=== PATIENT | female | born 1955 | race Caucasian/White ===

== ENCOUNTER 2016-05-04 09:23 | Day surgery (SDC) | payer OTHER ==
--- NOTE | 2016-05-04 06:25 | P.GSHP ---
History of Present Illness H&P Date: 05/04/16 DATE OF SERVICE: 05/04/2016 CHIEF COMPLAINT: Panniculitis and ventral hernia. HISTORY OF PRESENT ILLNESS: Jina Ferrara is a 60-year-old female who is status post sleeve gastrectomy in 2012. She is more than 2+ years out. She reports moderate skin irritation of her pannus including a increased bulge of the lower abdomen consistent with ventral hernia. Her skin is being treated with medicated powders for over 6+ months however her symptoms continue to progress including pain from her ventral hernia. At her height of 5 feet 2 inches she initially weighed 224 pounds. Today she weighs 179 pounds. Her ideal body weight is 135 pounds. She has maintained a 45 pound weight loss. Percent excess weight loss is 51%. Body mass index is reduced from 41 to 31.7. She has been taking bariatric advantage for multivitamins. Today she comes in with persistent troubles of her lower abdomen from her ventral hernia including her panniculitis. PAST MEDICAL HISTORY: 1. Morbid obesity. 2. Diabetes mellitus type 2, resolved. 3. Osteoarthritis. 4. Depression. 5. Insomnia. PAST SURGICAL HISTORY: 1. Upper endoscopy. 2. Status post sleeve gastrectomy. 3. section. 4. Cholecystectomy. 5. Tubal ligation. MEDICATIONS: 1. Effexor. 2. Restoril. 3. Nystatin powder. 4. Ativan. 5. Vitamin D. 6. Calcium. ALLERGIES: CODEINE. SOCIAL HISTORY: No active tobacco use. FAMILY HISTORY: Significant for obesity including diabetes. Has a family history of lung cancer. REVIEW OF SYSTEMS: CONSTITUTIONAL: At her height of 5 feet 2 inches she initially weighed 224 pounds. Today she weighs 179 pounds. Her ideal body weight is 135 pounds. She has maintained a 45 pound weight loss. Percent excess weight loss is 51%. Body mass index is reduced from 41 to 32.7. She has lost approximately 5 pounds since her last visit 2 months ago. GASTROINTESTINAL: Denies any gastroesophageal reflux disease. ENDOCRINE: Complete resolved diabetes type 2. No thyroid disorders. CARDIOVASCULAR: Resolved hypertension. PSYCH: History of depression without suicidal ideation. MUSCULOSKELETAL: No reports of joint or lower back pain. HEMATOLOGIC: No reports of easy bruising and bleeding. SKIN: Persistent panniculitis of the pannus despite treatment with medicated [place]. HEENT: Denies any trouble with vision, hearing or nosebleeds. No difficulty swallowing. LYMPHATIC: The patient denies any lumps and bumps around the neck. RESPIRATORY: Denies pneumonia. Denies any troubles with breathing or dyspnea on exertion. GENITOURINARY: Denies any blood in urine or increased urinary frequency. NEUROLOGIC: Denies any numbness or tingling along the distal extremities. No seizure disorders or headaches. PHYSICAL EXAM: VITAL SIGNS: 98.8, 74, 16, 116/57; 5 foot 2, 179 pounds. Body mass index 31.7 ABDOMEN: Palpable incisional, irreducible ventral hernia lower abdomen. Tender of over 5 cm. Pannus extends over pubis by 6 cm with hyperemia. Weight of pannus of at least 8 pounds. GENERAL: Well-developed female no acute distress. NECK: Supple without lymphadenopathy. CHEST: Unlabored respirations with equal bilateral excursions. CARDIOVASCULAR: Regular rate and rhythm. ABDOMEN: Soft, nontender. MUSCULOSKELETAL: No clubbing, cyanosis, or edema. NEURO: No focal or lateralizing signs. Cranial nerves 2 through 12 grossly within normal limits. PSYCH: Appropriate affect. Alert and oriented to person, place and time. ASSESSMENT: 1. Morbid obesity due to excess calories now resolved. 2. Body mass index reduced from 41 to 31.7, obesity. 3. Status post sleeve gastrectomy. 4. Recurrent panniculitis despite medical treatment. 5. Incisional ventral hernia, 5 cm. 6. Dietary surveillance. 7. History of depression without psychosis. 8. Diabetes type 2, resolved. 9. Depression without psychosis. 10. Secondary hyperparathyroidism. PLAN: 1. On exam, she has increased bulge of the lower abdomen consistent with a ventral hernia. 2. As she is symptomatic, recommend urgent surgical intervention. 3. Additionally, the patient has symptomatic pannus despite medical treatment over 6+ months. 4. Recommend panniculectomy with incisional ventral hernia repair. Benefits and risks including bleeding infection, flap failure, skin ischemia, anemia, need for further surgery were described at length. 5. She has a moderate-sized pannus, recommend inpatient hospitalization for at least 2 nights. 6. DVT prophylaxis. 7. Antibiotic prophylaxis. 8. Recommend high protein, low carb diet for optimal wound recovery. 9. Recommend inpatient hospitalization anticipated for 2 nights. Past Medical History Past Medical History: Cancer, Diabetes Mellitus, Sleep Apnea/CPAP/BIPAP Additional Past Medical History / Comment(s): basal cell skin cancer, diabetes resolved, arthritis, pt stopped using CPAP machine History of Any Multi-Drug Resistant Organisms: None Reported Past Surgical History: Bariatric Surgery, Section, Cholecystectomy, Hysterectomy, Tubal Ligation Additional Past Surgical History / Comment(s): sleeve gastrectomy 10/03/2012,c- sect x2 Past Anesthesia/Blood Transfusion Reactions: No Reported Reaction Additional Past Anesthesia/Blood Transfusion Reaction / Comment(s): no hx blood transfusion Past Psychological History: Anxiety Smoking Status: Former smoker Past Alcohol Use History: Occasional Additional Past Alcohol Use History / Comment(s): quit smoking ,smoked approx 20 yrs 1ppd Past Drug Use History: None Reported - Past Family History Brother(s) Additional Family Medical History / Comment(s): heart problems Mother Family Medical History: Cancer Additional Family Medical History / Comment(s): Mom of lung cancer Father Family Medical History: CVA/TIA, Diabetes Mellitus Medications and Allergies Home Medications Medication Instructions Recorded Confirmed Type LORazepam [Ativan] 0.5 mg PO HS PRN 09/25/13 04/22/16 History Temazepam [Restoril] 30 mg PO HS 09/25/13 04/22/16 History Venlafaxine HCl [Effexor] 150 mg PO QAM 09/25/13 04/22/16 History Cholecalciferol [Vitamin D3] 5,000 unit PO DAILY 04/22/16 04/22/16 History Nystatin 100,000 Unit/gm Powd 1 applic TOPICAL BID PRN 04/22/16 04/22/16 History [Mycostatin Powder] Pseudoephedrine HCl [Sudafed 1 tab PO DAILY PRN 04/22/16 04/22/16 History 24-Hour] Allergies Allergy/AdvReac Type Severity Reaction Status Date / Time No Known Allergies Allergy Verified 04/22/16 11:13
[~2016-05-04 09:23] MED LIST: DEXAMETHASONE SOD PHOSPHATE 10 MG/ML 1 ML VIAL IV ONE; FAMOTIDINE 20 MG/2 ML VIAL IV PRN; HEPARIN SODIUM,PORCINE 5,000 UNIT/ML 1 ML VIAL SQ ONE; LIDOCAINE 1% 20 ML VIAL (10MG/ML) FOR IV START INTRADERMA PRN; MIDAZOLAM 2 MG/2 ML VIAL IV PRN; ONDANSETRON 4 MG/2 ML VIAL IVP PRN
[2016-05-04] MEDS: LACTATED RINGERS 1,000 ML IV SCH ×3 (10:08→21:22)
[2016-05-04] MEDS ORDERED: ePHEDrine 50 MG/ML 1 ML AMP ONE (10:30)
[2016-05-04] MEDS ORDERED: MIDAZOLAM 2 MG/2 ML VIAL ONE (10:30)
[2016-05-04] MEDS ORDERED: SODIUM CHLORIDE 0.9% 100 ML BAG ONE (10:30)
[2016-05-04] MEDS ORDERED: GLYCOPYRROLATE 0.2 MG/ML 2 ML VIAL ONE (10:30)
[2016-05-04] MEDS: ceFAZolin 2 GM in SODIUM CHLORIDE 0.9% 100 ML IVPB ONE ×3 (10:30→15:25)
[2016-05-04] MEDS ORDERED: NEOSTIGMINE 1 MG/ML 10 ML VIAL ONE (10:30)
[2016-05-04] MEDS ORDERED: PROPOFOL 10 MG/ML 20 ML VIAL IV ONE (10:30)
[2016-05-04] MEDS ORDERED: VECURONIUM 10 MG VIAL IV ONE (10:30)
[2016-05-04] MEDS ORDERED: ONDANSETRON 4 MG/2 ML VIAL ONE (10:30)
[2016-05-04] MEDS ORDERED: ceFAZolin 10 GM VIAL IVPB ONE (10:30)
[2016-05-04] MEDS ORDERED: LACTATED RINGERS 1,000 ML BAG IV ONE (10:30)
[2016-05-04] MEDS ORDERED: fentaNYL (PF) 50 MCG/ML 2 ML AMP ONE (10:30)
[2016-05-04] MEDS ORDERED: SUCCINYLCHOLINE CHLORIDE VIAL 200 MG/10 ML VIAL IV ONE (10:30)
[2016-05-04] MEDS: BUPIVACAINE LIPOSOME/PF 1.3% 20 ML, BUPIVACAIN-EPI 0.5%-1:200,000 25 ML, SODIUM CHLORID... MISCELLANE ONE ×6 (11:43→11:59)
[2016-05-04] MEDS ORDERED: LACTATED RINGERS 1,000 ML IV ONE ×3 (12:25→13:40)
[2016-05-04] MEDS ORDERED: NALOXONE 0.4 MG/ML 1 ML VIAL IV PRN (13:43)
[2016-05-04] MEDS ORDERED: METOCLOPRAMIDE 5 MG/ML 2 ML VIAL IVP PRN (13:43)
[2016-05-04] MEDS ORDERED: ONDANSETRON 4 MG/2 ML VIAL IVP PRN (13:43)
--- NOTE | 2016-05-04 13:43 | P.OP ---
Date of Procedure: 05/04/16 Description of Procedure: SURGEON: GIULIANA GARNER MD WOOD [employer]ING MACHINE OPERATOR: ALDA FLORES PREOPERATIVE DIAGNOSES: 1. Morbid obesity due to excess calories now resolved. 2. Body mass index reduced from 41 to 31.7, obesity. 3. Status post sleeve gastrectomy. 4. Recurrent panniculitis despite medical treatment. 5. Incisional ventral hernia, 5 cm. 6. Dietary surveillance. 7. History of depression without psychosis. 8. Diabetes type 2, resolved. 9. Depression without psychosis. 10. Secondary hyperparathyroidism. 11. Incisional ventral hernia. 12. Localized central adiposity. POSTOPERATIVE DIAGNOSES: 1. Morbid obesity due to excess calories now resolved. 2. Body mass index reduced from 41 to 31.7, obesity. 3. Status post sleeve gastrectomy. 4. Recurrent panniculitis despite medical treatment. 5. Incisional ventral hernia, 5 cm. 6. Dietary surveillance. 7. History of depression without psychosis. 8. Diabetes type 2, resolved. 9. Depression without psychosis. 10. Secondary hyperparathyroidism. 11. Ventral hernia, 4 x 17 cm initial and reducible. 12. Localized central adiposity. OPERATION: 1. Panniculectomy, 9.4 pounds. 2. Open reduction and repair of reducible incisional ventral hernia 4 x 17 cm without mesh. ANESTHESIA: General with 85 mL of Exparel with sensorcaine and normal saline mixture. ESTIMATED BLOOD LOSS: 300 mL SPECIMENS REMOVED: Pannus 9.4 pounds. COMPLICATIONS: None. CONDITION: Stable. DRAINS: Two #19 Carl drains below abdominal flap extending through the pubis. OPERATIVE FINDINGS: 1. Pannus weighing 9.4 pounds, excised. 2. Abdominal initial reducible incisional ventral hernia of 4 x 17 cm along the lower midline repaired primarily using fascial imbrication, 9 cm. INDICATIONS: The patient is a 60-year-old female status post sleeve gastrectomy. She had moderate weight loss. Despite medical therapy with prescription powders such as Nystatin over 1 year, she has developed severe medical refractory panniculitis. Her body mass index has been reduced from approximately 41 to 31.7. She reports medically refractory panniculitis. She had an incisional ventral hernia of the lower abdomen and identified. Given her clinical symptoms, including massive weight loss, she elected for surgical intervention with a panniculectomy. Benefits and risks of the procedure including bleeding, infection, risk of flap failure were described at length. Informed consent was obtained. DESCRIPTION: In the preanesthesia care unit the patient was marked with an indelible marker. She had also been given heparin subcutaneously. The patient was brought into the operating room and laid in supine position. After general induction, a Wen catheter was placed. The abdomen was then prepped and draped in standard sterile fashion using ChloraPrep. The skin was prepped as far laterally to the back, inferiorly to the upper thighs and superiorly to above the bilateral breasts. A timeout protocol was confirmed with the surgical team regarding patient's name , procedure to be performed, including preoperative medications. She had received Ancef 2 grams IV antibiotics. Once the time-out protocol was confirmed with the surgical team, the patient was re-marked with indelible marker whereby the midline of the xiphoid to the mons pubis was marked. The anterior/superior iliac spine along the bilateral hips was also marked. Approximately 8 cm above the pubis commissure a transverse incision was made for the inferior portion of the flap. Using a #10 blade, the incision was taken from the midline laterally to above the anterior/superior iliac spine, initially on the left side of the patient and then on the right side of the patient. Electro-Bovie cautery was used to control for hemostasis. The dissection was taken down to the level of the fascia. Landmarks used were the xiphoid process as well as the bilateral costal margins for the superior margin. Care was taken to avoid any creation of dog ears during the dissection. Once hemostasis was checked, a large ventral hernia fascial defect of 4 x 17 cm was identified unrelated to her bariatric procedure. Additionally, along the umbilicus, an incarcerated 3 cm umbilical hernia was identified. During this dissection, the umbilicus was truncated at its fascial insertion. The umbilicus fascial excision was oversewn using 0 Prolene. Starting from the xiphoid process, fascial imbrication was performed using #2 Ethibond. Multiple facial imbrications at least 6 layers were performed. The ventral hernia defect was completely repaired and closed. For postop analgesia, 85 mL of Exparel with sensorcaine and normal saline mixture was infiltrated along the midline and fascia. Hemostasis was once again checked with electro-Bovie cautery and all defects were addressed. Attention was now brought to closure of the flap. Using stainless steel skin sarah, the midline was once again marked of the upper flap as well as the pubic commissure. The patient was placed in a flexed position of approximately 30 degrees at the hips. The pannus was extended inferiorly to the feet. The upper flap was created once the excess skin was excised. Again care was taken to avoid any dog ears along the lateral aspect of the incisions. Once excised, the pannus was weighed at 9.4 pounds. The upper and lower flaps were reapproximated at the midline and then laterally to the skin with skin sarah. Once reapproximated, the skin was closed in layers using 0 Vicryl for the superficial fascial system followed by running 3- 0 Monocryl for the deep dermis in a running subcuticular fashion. Prior to skin closure, two round #19 Carl drains were placed underneath the flap and brought out just inferior to the incision along the pubis. Drain stitch using 2-0 nylon was placed. Once the incision was closed, bulb suction was attached. Hemostasis was checked. At the end of the procedure, the needle, sponge and instrument count was verified correct. Dermabond tape with Dermabond liquid was placed along the entire length of the incision. OptiFlow Aquacel Ag dressing was placed once dried along the incision. CHG Tegaderm was placed over the BARBY insertion sites. The patient was then transferred to a hospital bed in a beach chair position. An abdominal binder was placed and marked. The patient was taken to the postanesthesia care unit in stable condition, awake and extubated. Total time for procedure from skin to skin was 140 minutes. Patient was deemed an ASA2. The intraoperative findings were discussed with her who was pleased with the level of care.
[2016-05-04] MEDS: HYDROmorphone 1 MG/ML 1 ML SYRINGE IVP PRN ×4 (14:14→20:44)
[2016-05-04] MEDS: ceFAZolin 2 GM in SODIUM CHLORIDE 0.9% 100 ML IVPB SCH ×2 (14:53→21:26)
[2016-05-04] MEDS: D5-0.45% NACL WITH KCL 20MEQ/L 1,000 ML IV SCH ×3 (15:24→23:50)
[2016-05-04 16:06] VITALS: BMI 33.5
[2016-05-04 16:56] VITALS: RESP 16
--- NOTE | 2016-05-04 19:27 | P.PN ---
Subjective Principal diagnosis: Ventral hernia with panniculitis Patient is postop day 0 status post panniculectomy ventral hernia repair. She complains of severe postoperative incisional pain. Separately she has symptomatic hypo-magnesia. She also has acute urinary retention following anesthesia. Objective - Vital Signs Vital signs: Vital Signs Temp 97.2 F L 05/04/16 15:30 Pulse 110 H 05/04/16 16:56 Resp 16 05/04/16 15:30 BP 135/71 05/04/16 16:56 Pulse Ox 96 05/04/16 15:30 Intake & Output 05/04/16 05/04/16 05/05/16 06:59 18:59 06:59 Intake Total 2940 Output Total 680 Balance 2260 Weight 83.2 kg Intake: IV 2700 Oral 240 Output: Drainage 20 BARBY Drain 1 20 Urine 230 Estimated Blood Loss 430 - Exam GENERAL: Well developed and in no acute distress. Pleasant. HEENT: No sclera icterus. Extraocular movements grossly intact. Moist buccal mucosa. Head is atraumatic, normocephalic. Hears conversational speech. No nasal drainage. NECK: Supple without lymphadenopathy. No JV distention. CHEST: Non-labored respirations and equal bilateral excursions. CARDIOVASCULAR: Regular rate and rhythm. Palpable 2+ radial pulses. ABDOMEN: Soft, tender. Nondistended. Dressings clean dry and intact. Abdominal binder present. JPs sanguinous. MUSCULOSKELETAL: No clubbing, cyanosis or edema. NEUROLOGIC: No focal or lateralizing signs. PSYCH: Appropriate affect. Alert and oriented to person, place and time. - Labs Labs: Abnormal Lab Results - Last 24 Hours (Table) 05/04/16 Range/Units 14:30 Magnesium 1.5 L (1.6-2.3) mg/dL Assessment and Plan (1) Adiposity, localized Status: Chronic (2) Panniculitis Status: Chronic (3) S/P panniculectomy Status: Acute (4) Acute urinary retention Status: Acute (5) Hypomagnesemia Status: Acute (6) Obesity (BMI 30.0-34.9) Status: Chronic (7) Incisional hernia without mention of obstruction or gangrene Status: Acute (8) History of sleeve gastrectomy Status: Chronic (9) History of incisional hernia repair Status: Acute Plan: 1. Recommend correction of magnesium. 2. Recommend Flomax for acute urinary retention. 3. Reinsertion of Wen catheter with removal in the morning. 4. She has severe postoperative pain for which recommended inpatient hospitalization. 5. BARBY teaching. 6. DVT prophylaxis. 7. Wear abdominal binder at all times.
[2016-05-04] MEDS: MAGNESIUM SULFATE-D5W PMX 1 GM in DEXTROSE/WATER 1 100ML.BAG IVPB SCH ×3 (20:03→23:46)
[2016-05-04] MEDS ORDERED: TAMSULOSIN 0.4 MG CAP.ER.24H PO STA (20:04)
[2016-05-04] MEDS: TAMSULOSIN 0.4 MG CAP.ER.24H PO SCH ×2 (20:07→20:35)
[2016-05-04] MEDS ORDERED: TEMAZEPAM 30 MG CAP PO SCH (21:00)
[2016-05-04] MEDS: HYDROcodone/APAP 5-325MG 1 EACH TAB PO PRN (23:48)
[2016-05-05] MEDS: MAGNESIUM SULFATE-D5W PMX 1 GM in DEXTROSE/WATER 1 100ML.BAG IVPB SCH (00:54)
[2016-05-05] MEDS: HYDROcodone/APAP 5-325MG 1 EACH TAB PO PRN ×2 (06:25→12:01)
[2016-05-05 07:12] VITALS: TEMP 97.8
[2016-05-05] MEDS: TAMSULOSIN 0.4 MG CAP.ER.24H PO SCH (07:13)
[2016-05-05 08:07] LABS: Basophils # (A) 0.1 k/uL (0-0.2); Basophils % (A) 1 %; CH 31.5; CHCM 32.4; Eosinophils % (A) 0 %; HCT 39.4 % (34.0-46.0); HDW 2.48; HGB 12.5 gm/dL (11.4-16.0); Luc # (Auto) 0.12; Luc % (Auto) 1; Lymphocytes # (A) 1.1 k/uL (1.0-4.8); Lymphocytes % (A) 8 %; MCHC 31.8 g/dL (31.0-37.0); MCV 97.7 fL (80.0-100.0); Mean Platelet Volume 8.1; Monocytes # (A) 0.8 k/uL (0-1.0); Monocytes % (A) 6 %; Neutrophils # (A) 11.6 k/uL (1.3-7.7); Neutrophils % (A) 84 %; RBC 4.03 m/uL (3.80-5.40); RDW 13.2 % (11.5-15.5); WBC 13.7 k/uL (3.8-10.6); WBC (Perox) 15.11
--- NOTE | 2016-05-05 08:55 | P.DS ---
<Lillian Rodriguez - Last Filed: 05/05/16 14:38> Providers Attending physician: Ivory Elkins Primary care physician: Gianni Elliott Patient Condition at Discharge: Stable Plan - Discharge Summary New Discharge Prescriptions: HYDROcodone/APAP 7.5-325MG [[place] 7.5-325] 1 tab PO Q4H PRN #60 tab PRN Reason: Pain Discharge Medication List LORazepam [Ativan] 0.5 mg PO HS PRN 09/25/13 [History] Temazepam [Restoril] 30 mg PO HS 09/25/13 [History] Venlafaxine HCl [Effexor] 150 mg PO QAM 09/25/13 [History] Cholecalciferol [Vitamin D3] 5,000 unit PO DAILY 04/22/16 [History] Pseudoephedrine HCl [Sudafed 24-Hour] 1 tab PO DAILY PRN 04/22/16 [History] HYDROcodone/APAP 7.5-325MG [Brightwood 7.5-325] 1 tab PO Q4H PRN #60 tab 05/04/16 [Rx ] Follow up Appointment(s)/Referral(s): Ivory Elkins MD [STAFF PHYSICIAN] - 05/07/16 11:20 am (Bariatric center) Patient Instructions/Handouts: Belt Lipectomy (GEN), Kwame-Conrad Drain Care ( GEN) Activity/Diet/Wound Care/Special Instructions: No lifting over 4 pounds in 4 weeks. Follow-up at the bariatric center. Do not shower until cleared by surgeon. Dressings to be discontinued by surgeon in the office. Please sleep in bed at 45 angle. Keep BARBY outputs. Discharge Disposition: HOME WITH HOME HEALTH SERVICES <Ivory Elkins - Last Filed: 05/05/16 18:20> Providers Date of admission: 05/04/2016 Expected date of discharge: 05/05/16 - Discharge Diagnosis(es) (1) Adiposity, localized Status: Chronic (2) Panniculitis Status: Chronic (3) S/P panniculectomy Status: Acute (4) Acute urinary retention Status: Acute (5) Hypomagnesemia Status: Acute (6) Obesity (BMI 30.0-34.9) Status: Chronic (7) Incisional hernia without mention of obstruction or gangrene Status: Acute (8) History of sleeve gastrectomy Status: Chronic (9) History of incisional hernia repair Status: Acute Hospital Course: POSTOPERATIVE DIAGNOSES: 1. Morbid obesity due to excess calories now resolved. 2. Body mass index reduced from 41 to 31.7, obesity. 3. Status post sleeve gastrectomy. 4. Recurrent panniculitis despite medical treatment. 5. Incisional ventral hernia, 5 cm. 6. Dietary surveillance. 7. History of depression without psychosis. 8. Diabetes type 2, resolved. 9. Depression without psychosis. 10. Secondary hyperparathyroidism. 11. Ventral hernia, 4 x 17 cm initial and reducible. 12. Localized central adiposity. Patient underwent a panniculectomy with repair of ventral hernia. She has severe postoperative pain which required admission. Separately she had acute urinary retention with symptomatic hypo-magnesia. Her electrolytes were corrected. She was started on Flomax. Drain management were discussed. She will wear an abdominal binder at all times. No showering until cleared by surgeon. Prior to discharge, she was tolerating diet. Pain was controlled with oral pain meds. She was ambulating. teaching was reviewed. Procedures: OPERATION: 1. Panniculectomy, 9.4 pounds. 2. Open reduction and repair of reducible incisional ventral hernia 4 x 17 cm without mesh.
[2016-05-05] MEDS ORDERED: PANTOPRAZOLE 40 MG/10 ML VIAL IV SCH (09:00)
[2016-05-05] MEDS ORDERED: VENLAFAXINE HCL 75 MG TAB PO SCH (09:00)
[2016-05-05] MEDS ORDERED: ENOXAPARIN 40 MG/0.4 ML SYRINGE SQ SCH (09:00)
[2016-05-05] MEDS ORDERED: BENZOCAINE/MENTHOL LOZENG 1 EACH LOZENGE MUCOUS MEM PRN (09:50)
[2016-05-05 14:35] VITALS: BP 104/56; PULSE 79
[2016-05-06] MEDS ORDERED: PANTOPRAZOLE 40 MG TABLET PO SCH (07:30)
== END 2016-05-05 16:39 | disposition home health service (06) ==
LOC: OR 09:23 → 3SUR 13:24 → OR 05-05 16:39
PROVIDERS: ATTEND Surgery Plastic and Reconstructive Surgery
DX: K43.9 Ventral hernia without obstruction or gangrene (principal); M79.3 Panniculitis, unspecified; E65 Localized adiposity; E66.01 Morbid (severe) obesity due to excess calories; Z68.31 Body mass index [BMI] 31.0-31.9, adult; Z98.84 Bariatric surgery status; M19.90 Unspecified osteoarthritis, unspecified site; Z87.891 Personal history of nicotine dependence; F32.9 Major depressive disorder, single episode, unspecified; F41.9 Anxiety disorder, unspecified; G47.00 Insomnia, unspecified; N25.81 Secondary hyperparathyroidism of renal origin; Z79.899 Other long term (current) drug therapy; Z88.5 Allergy status to narcotic agent
CPT/HCPCS: 49560; 15830; 94760; 83735 ×2; 85025; J2250; J0330; J1644; J1100; J2710; J0690; J2405; J1650; J3010; J1170; J3475 ×2; C9290; J2704; C9113

== ENCOUNTER → 2016-05-07 | Outpatient (CLI) | payer OTHER ==
--- NOTE | 2016-05-08 08:19 | PN ---
DATE OF SERVICE: 05/07/2016 CHIEF COMPLAINT: Status post panniculectomy. HISTORY OF PRESENT ILLNESS: Jina Ferrara is a 60-year-old female who is status post panniculectomy of 10 pounds skin removed. Separately, she had a large ventral hernia which was also repaired. At a height of 5 feet 2 inches, her ideal body weight is 135 pounds. Today she comes in weighing 180 pounds. She lost 3 pounds in 3 days total. Percent excess weight loss is maintained at 50%. She reports moderate pain. No reports of fevers or chills. PHYSICAL EXAM: VITAL SIGNS: 97.8, 91, 14, 135/74, 5 feet 2 inches, 180 pounds. Body mass index 32.9. GENERAL: Well-developed female in no acute distress. ABDOMEN: Dressings of Optifoam were discontinued. The Dermabond tape was still present. No signs of cellulitis or skin infection. JPs are serosanguineous. Dressings of the CHG Tegaderm was also changed. Abdominal binder was also placed. NECK: Supple without lymphadenopathy. CHEST: Unlabored respirations with equal bilateral excursions. CARDIOVASCULAR: Regular rate and rhythm. ABDOMEN: Soft, nontender. MUSCULOSKELETAL: No clubbing, cyanosis, or edema. NEURO: No focal or lateralizing signs. Cranial nerves 2 through 12 grossly within normal limits. PSYCH: Appropriate affect. Alert and oriented to person, place and time. ASSESSMENT: 1. Morbid obesity due to excess calories now resolved. 2. Body mass index reduced from 41 to 32.9, obesity. 3. Status post sleeve gastrectomy. 4. Recurrent panniculitis despite medical treatment, resolved. 5. Incisional ventral hernia, 5 cm, resolved. 6. Dietary surveillance. 7. History of depression without psychosis. 8. Diabetes type 2, resolved. 9. Depression without psychosis. 10. Secondary hyperparathyroidism. 11. Status post panniculectomy. 12. History of ventral hernia repair. PLAN: 1. She will continue with BARBY drains as her outputs are still anywhere between 50 mL to 100 mL daily. 2. Recommend followup in one week for potential removal of her BARBY drains. 3. Abdominal binder to be worn at all times. [facility]
== END | disposition home or self-care (01) ==
CPT/HCPCS: 99212

== ENCOUNTER → 2016-05-13 | Outpatient (CLI) | payer OTHER ==
--- NOTE | 2016-05-24 19:40 | P.PN ---
Progress Note - Text DATE OF SERVICE: 05/13/2016 CHIEF COMPLAINT: Follow up panniculectomy. HISTORY OF PRESENT ILLNESS: Jina Ferrara is a 60-year-old female who is now status post panniculectomy and ventral hernia repair on 05/04/2016. She is a little over 1 week out. She had close to 10 pounds of skin removed as well as a ventral hernia repair. She denies any fevers or chills. She is ambulating. Much of her help is from her . PHYSICAL EXAM: VITAL SIGNS: 98.8, 72, 16, 127/76, 5 feet 2 inches, 176 pounds. Body mass index 32.3. ABDOMEN: Dressings were discontinued. Moderate maculopapular rash identified from allergy of her binder. No drainage, cellulitis or flap failure identified. BARBY dressings were changed with CHG tegaderm. GENERAL: Well-developed female no acute distress. NECK: Supple without lymphadenopathy. CHEST: Unlabored respirations with equal bilateral excursions. CARDIOVASCULAR: Regular rate and rhythm. ABDOMEN: Soft, nontender. MUSCULOSKELETAL: No clubbing, cyanosis, or edema. NEURO: No focal or lateralizing signs. Cranial nerves 2 through 12 grossly within normal limits. PSYCH: Appropriate affect. Alert and oriented to person, place and time. ASSESSMENT: 1. History of panniculitis. 2. Status post panniculectomy. 3. History of reducible ventral hernia. 4. Status post ventral hernia repair. 5. Status post sleeve gastrectomy. 6. Body mass index reduced from 41 down to 32.3. PLAN: 1. Her BARBY outputs are still well over 20 mL daily; however, serosanguineous. 2. On exam, she has a rash from the binder, whereby I have asked her to wear a T-shirt or a pillowcase away from the skin and the incisions. 3. She will continue with BARBY drain care and management. 4. I recommend that she continue to take Benadryl for her rash. 5. She has a topical prescribed hydrocortisone per her primary care provider. 6. Recommend followup in 1 week.
== END | disposition home or self-care (01) ==
CPT/HCPCS: 99211

== ENCOUNTER → 2016-05-18 | Outpatient (CLI) | payer OTHER ==
--- NOTE | 2016-05-18 20:58 | PN ---
DATE OF SERVICE: 05/18/2016. CHIEF COMPLAINT: Follow-up panniculectomy. HISTORY OF PRESENT ILLNESS: Jina Ferrara is a 60-year-old female who is status post panniculectomy 05/04/2016. She is almost 2 weeks out. She reports minimal output from her BARBY drain. Her abdominal pain is moderately improved, post incisional. She has excellent energy. No reports of fevers or chills. PHYSICAL EXAM: VITAL SIGNS: 98.7, 68, 16, 118/65, 5 foot 2, 79.1, 52 kg body mass is 31.9. ABDOMEN: Incisions well reapproximated. No signs of flap failure, cellulitis. BARBY is serous and discontinued at bedside. CHG Tegaderms were reapplied over the insertion site of BARBY tubes. GENERAL: Well-developed female no acute distress. NECK: Supple without lymphadenopathy. CHEST: Unlabored respirations with equal bilateral excursions. CARDIOVASCULAR: Regular rate and rhythm. ABDOMEN: Soft, nontender. MUSCULOSKELETAL: No clubbing, cyanosis, or edema. NEURO: No focal or lateralizing signs. Cranial nerves 2 through 12 grossly within normal limits. PSYCH: Appropriate affect. Alert and oriented to person, place and time. ASSESSMENT: 1. Status post panniculectomy. 2. History of panniculitis, resolved. PLAN: 1. Her BARBY drains has been discontinued. 2. She is at risk for postop seroma, which is to be expected. I have asked her to wear abdominal binder at all times. 3. Recommend follow-up in one week. 4. I have also asked her to measure along the waistline to survey any recurrence of potential seromas. [facility]
== END | disposition home or self-care (01) ==
CPT/HCPCS: 99211

== ENCOUNTER → 2016-05-25 | Outpatient (CLI) | payer OTHER ==
[2016-05-25 11:11] VITALS: BP 147/83; PULSE 89; RESP 16; TEMP 98.2; BMI 30.4
--- NOTE | 2016-05-25 22:05 | P.PN ---
Progress Note - Text DATE OF SERVICE: 05/25/2016. CHIEF COMPLAINT: Follow-up panniculectomy. HISTORY OF PRESENT ILLNESS: Jina Ferrara is a 60-year-old female who is status post panniculectomy 05/04/2016. She has done extremely well losing 17 pounds since her procedure. Her protein intake has maintained over 50 g daily. She is wearing her abdominal binder at all times. No report of fevers or chills. She denies any infection. She denies any increased abdominal pain or symptoms of abdominal wall seroma. PHYSICAL EXAM: VITAL SIGNS: 98.2, 89, 16, 147/83, 5 foot 2, 79.1, 166 pounds. Body mass is 30.4. ABDOMEN: Soft, nondistended, nontender. No palpable abdominal wall seroma. No signs of infection or cellulitis. Incisions are well granulated. No signs of flap failure. GENERAL: Well-developed female no acute distress. NECK: Supple without lymphadenopathy. CHEST: Unlabored respirations with equal bilateral excursions. CARDIOVASCULAR: Regular rate and rhythm. ABDOMEN: Soft, nontender. MUSCULOSKELETAL: No clubbing, cyanosis, or edema. NEURO: No focal or lateralizing signs. Cranial nerves 2 through 12 grossly within normal limits. PSYCH: Appropriate affect. Alert and oriented to person, place and time. ASSESSMENT: 1. Status post panniculectomy. 2. History of panniculitis, resolved. 3. Dietary surveillance and counseling. 4. Body mass index reduced from 41 down to 30.4 5. History of sleeve gastrectomy. PLAN: 1. She is doing well. 2. On exam she has no abdominal wall seroma. 3. She'll continue to wear her abdominal binder at all times. 4. Goal protein intake over 65 g advised. 5. Follow-up in 2 weeks. 6. She will continue to observe any change on her abdominal exam.
== END | disposition home or self-care (01) ==
LOC: BARWHC3 10:55
PROVIDERS: ATTEND Surgery Plastic and Reconstructive Surgery
DX: Z48.815 Encounter for surgical aftercare following surgery on the digestive system (principal); Z98.84 Bariatric surgery status; Z68.30 Body mass index [BMI] 30.0-30.9, adult
CPT/HCPCS: 99211

== ENCOUNTER → 2016-06-11 | Outpatient (CLI) | payer OTHER ==
[2016-06-11 11:11] VITALS: BP 121/80; PULSE 76; RESP 18; TEMP 98.3; BMI 31.5
--- NOTE | 2016-07-27 12:03 | PN ---
DATE OF SERVICE: 06/11/2016 CHIEF COMPLAINT: Followup panniculectomy with ventral hernia repair. HISTORY OF PRESENT ILLNESS: Jina Ferrara is a 60-year-old female who is status post panniculectomy with ventral hernia repair on 05/04/2016. She is now a little over 5 weeks out. She has been doing extremely well. At her height of 5 feet 2 inches, her ideal body weight is 135 pounds. Her body mass index initially was 41. Now it is down to 31.5. Her initial weight in the program was 224 pounds. Now she is down to 172 pounds. She has maintained a 52 pound weight loss. Percent excess weight loss is 58%. In the past month, she has already lost another 7 pounds. She reports new reflux disease. Overall, she is very excited with her panniculectomy. PHYSICAL EXAM: VITAL SIGNS: 98.3, 76, 18, 121/80, 5 foot 2, 172 pounds. Body mass index of 31.5. ABDOMEN: Incision granulating. No palpable abdominal wall seroma. No palpable incisional hernias. GENERAL: Well-developed female no acute distress. NECK: Supple without lymphadenopathy. CHEST: Unlabored respirations with equal bilateral excursions. CARDIOVASCULAR: Regular rate and rhythm. MUSCULOSKELETAL: No clubbing, cyanosis, or edema. NEURO: No focal or lateralizing signs. Cranial nerves 2 through 12 grossly within normal limits. PSYCH: Appropriate affect. Alert and oriented to person, place and time. ASSESSMENT: 1. Morbid obesity due to excess calories, resolved. 2. Body mass index reduced from 41 down to 31.5. 3. History of sleeve gastrectomy. 4. Gastroesophageal reflux disease. 5. Status post panniculectomy. 6. Status post ventral hernia repair. 7. Resolved panniculitis. PLAN: 1. Overall, she has done extremely well. 2. She may wear abdominal binder for comfort. 3. Also recommend continuation of her bariatric diet of at least 60 gm of protein daily. 4. Recommend followup minimum on a yearly basis. ADDENDUM: Omeprazole prescription is written for her gastroesophageal reflux disease. [facility]
== END | disposition home or self-care (01) ==
LOC: BARWHC3 10:10
PROVIDERS: ATTEND Surgery Plastic and Reconstructive Surgery
DX: Z48.815 Encounter for surgical aftercare following surgery on the digestive system (principal); K21.9 Gastro-esophageal reflux disease without esophagitis; Z68.31 Body mass index [BMI] 31.0-31.9, adult; Z98.890 Other specified postprocedural states
CPT/HCPCS: 99212

== ENCOUNTER → 2016-10-15 | Outpatient (CLI) | payer OTHER ==
[2016-10-15 12:29] VITALS: BP 137/74; RESP 16; TEMP 98.5; BMI 31.8
--- NOTE | 2016-10-28 20:04 | P.PN ---
Progress Note - Text DATE OF SERVICE: 10/15/2016 CHIEF COMPLAINT: Follow-up sleeve gastrectomy. HISTORY OF PRESENT ILLNESS: Jina Ferrara is a 60-year-old female who is status post sleeve gastrectomy in 2012. She is more than 4 years out. Since her panniculectomy, she feels great. She reports weight gain of at least 2 pounds in 4 months. Her bowel movements are now regular and she is eating more vegetables. She still needs more protein in her diet. At her height of 5 feet 2 inches she initially weighed 224 pounds. Today she weighs 179 pounds. Her ideal body weight is 135 pounds. She has maintained a 50 pound weight loss. Percent excess weight loss is 56%. Body mass index is reduced from 41.1 to 31.9. PAST MEDICAL HISTORY: 1. Morbid obesity. 2. Diabetes mellitus type 2, resolved. 3. Osteoarthritis. 4. Depression. 5. Insomnia. PAST SURGICAL HISTORY: 1. Upper endoscopy. 2. Status post sleeve gastrectomy. 3. section. 4. Cholecystectomy. 5. Tubal ligation. 6. Panniculectomy. MEDICATIONS: 1. Effexor. 2. Restoril. 3. Calcium. 4. Ativan. 5. Vitamin D. ALLERGIES: Denies. SOCIAL HISTORY: No active tobacco use. FAMILY HISTORY: Significant for obesity including diabetes. Has a family history of lung cancer. REVIEW OF SYSTEMS: CONSTITUTIONAL: At her height of 5 feet 2 inches she initially weighed 224 pounds. Today she weighs 179 pounds. Her ideal body weight is 135 pounds. She has maintained a 50 pound weight loss. Percent excess weight loss is 56%. Body mass index is reduced from 41.1 to 31.9. GASTROINTESTINAL: Denies any gastroesophageal reflux disease. No dumping syndrome. ENDOCRINE: Complete resolved diabetes type 2. No thyroid disorders. CARDIOVASCULAR: Resolved hypertension. No palpitations. PSYCH: History of depression without suicidal ideation. MUSCULOSKELETAL: No reports of joint or lower back pain. HEMATOLOGIC: No reports of easy bruising and bleeding. HEENT: Denies any trouble with vision, hearing or nosebleeds. No difficulty swallowing. LYMPHATIC: The patient denies any lumps and bumps around the neck. RESPIRATORY: Denies pneumonia. Denies any troubles with breathing or dyspnea on exertion. GENITOURINARY: Denies any blood in urine or increased urinary frequency. NEUROLOGIC: Denies any numbness or tingling along the distal extremities. No seizure disorders or headaches. PHYSICAL EXAM: VITAL SIGNS: 98.8, 74, 16, 116/57; 5 foot 2, 179 pounds. Body mass index 32.7 ABDOMEN: Palpable incisional, irreducible ventral hernia lower abdomen. Tender of over 5 cm. Pannus extends over pubis by 6 cm with hyperemia. Weight of pannus of at least 8 pounds. GENERAL: Well-developed female no acute distress. NECK: Supple without lymphadenopathy. CHEST: Unlabored respirations with equal bilateral excursions. CARDIOVASCULAR: Regular rate and rhythm. ABDOMEN: Soft, nontender. MUSCULOSKELETAL: No clubbing, cyanosis, or edema. NEURO: No focal or lateralizing signs. Cranial nerves 2 through 12 grossly within normal limits. PSYCH: Appropriate affect. Alert and oriented to person, place and time. ASSESSMENT: 1. Morbid obesity due to excess calories now resolved. 2. Body mass index reduced from 41 to 32.7, obesity. 3. Status post sleeve gastrectomy. 4. Recurrent panniculitis despite medical treatment. 5. Incisional ventral hernia, 5 cm. 6. Dietary surveillance. 7. History of depression without psychosis. 8. Diabetes type 2, resolved. 9. Depression without psychosis. 10. Secondary hyperparathyroidism. PLAN: 1. She comes in as a follow-up of her panniculectomy. Scar maturation takes at least 1 year. 2. Recommend essential oils such as coconut and Lavender to help smooth out scar appearance. 3. Recommend protein intake over 60 g daily. 4. Recommend follow-up yearly for history of sleeve gastrectomy.
== END ==
LOC: BARWHC3 10:57
PROVIDERS: ATTEND Surgery Plastic and Reconstructive Surgery
DX: Z09 Encounter for follow-up examination after completed treatment for conditions other than malignant neoplasm (principal); M79.3 Panniculitis, unspecified; K43.2 Incisional hernia without obstruction or gangrene; N25.81 Secondary hyperparathyroidism of renal origin; F32.9 Major depressive disorder, single episode, unspecified; F41.9 Anxiety disorder, unspecified; M19.90 Unspecified osteoarthritis, unspecified site; G47.00 Insomnia, unspecified; Z79.899 Other long term (current) drug therapy; Z98.84 Bariatric surgery status
CPT/HCPCS: 99211

== ENCOUNTER → 2017-01-26 | Outpatient (CLI) | payer OTHER ==
--- NOTE | 2017-01-28 08:12 | MM ---
Reason for exam: screening (asymptomatic). Last mammogram was performed 1 year ago. History: Patient is postmenopausal and history of other cancer. Took estrogen for 1 year. Physical Findings: A clinical breast exam by your physician is recommended on an annual basis and results should be correlated with mammographic findings. MG 3D Screening Mammo W/Cad Bilateral CC and MLO view(s) were taken. Prior study comparison: January 21, 2016, bilateral MG screening mammo w CAD. January 18, 2015, bilateral MG screening mammo w CAD. There are scattered fibroglandular densities. Finding: There are typically benign diffuse/scattered calcifications in both breasts. Left 3mm lateral asymmetry at posterior depth and architectural distortion. ASSESSMENT: Incomplete: need additional imaging evaluation, BI-RAD 0 RECOMMENDATION: Special view mammogram of the left breast. If lesion persists on supplemental views, image directed ultrasound is recommended. [facility] will attempt to contact patient to return for supplemental views and ultrasound if indicated.
== END | disposition home or self-care (01) ==
LOC: RADMAMWWP 13:52
PROVIDERS: ATTEND Internal Medicine
DX: Z12.31 Encounter for screening mammogram for malignant neoplasm of breast (principal)
CPT/HCPCS: 77063; G0202

== ENCOUNTER → 2017-01-29 | Outpatient (CLI) | payer OTHER ==
--- NOTE | 2017-02-01 07:34 | MM ---
Reason for exam: additional evaluation requested from abnormal screening. Last mammogram was performed less than 1 month ago. History: Patient is postmenopausal and has history of other cancer at age 61. Took estrogen for 1 year. Physical Findings: Nurse did not find any significant physical abnormalities on exam. MG 3D Work Up W/Cad LT LM, XCCL, spot compression MLO, and spot compression CC view(s) were taken of the left breast. Prior study comparison: January 26, 2017, bilateral MG 3d screening mammo w/cad. January 21, 2016, bilateral MG screening mammo w CAD. There is no discrete abnormality including area of concern. These results were verbally communicated with the patient and result sheet given to the patient on 01/29/17. ASSESSMENT: Negative, BI-RAD 1 RECOMMENDATION: Return to routine screening mammogram schedule for both breasts.
== END | disposition home or self-care (01) ==
LOC: RADMAMWWP 10:51
PROVIDERS: ATTEND Internal Medicine
DX: R92.8 Other abnormal and inconclusive findings on diagnostic imaging of breast (principal)
CPT/HCPCS: G0206; G0279

== ENCOUNTER → 2017-10-08 | Outpatient (CLI) | payer OTHER ==
[2017-10-08 07:17] LABS: Basophils % (A) 1 %; Eosinophils # (A) 0.2 k/uL (0-0.7); Eosinophils % (A) 3 %; HCT 44.9 % (34.0-46.0); HGB 15.1 gm/dL (11.4-16.0); Lymphocytes # (A) 1.8 k/uL (1.0-4.8); Lymphocytes % (A) 28 %; MCH 31.9 pg (25.0-35.0); MCHC 33.6 g/dL (31.0-37.0); MCV 94.9 fL (80.0-100.0); Mean Platelet Volume 7.4; Monocytes # (A) 0.4 k/uL (0-1.0); Monocytes % (A) 6 %; Neutrophils # (A) 3.9 k/uL (1.3-7.7); Neutrophils % (A) 61 %; Platelet Count 124 k/uL (150-450); RBC 4.73 m/uL (3.80-5.40); WBC 6.4 k/uL (3.8-10.6)
[2017-10-08 07:46] LABS: ALT 32 U/L (9-52); AST 18 U/L (14-36); Alkaline Phosphatase 66 U/L (38-126); Anion Gap 10 mmol/L; Blood Urea Nitrogen 15 mg/dL (7-17); Carbon Dioxide 27 mmol/L (22-30); Chloride 106 mmol/L (98-107); Cholesterol 158 mg/dL (<200); Glucose 96 mg/dL (74-99); HDL Cholesterol 45 mg/dL (40-60); LDL Cholesterol,Calculated 88 mg/dL (0-99); Sodium 143 mmol/L (137-145); Total Bilirubin 0.9 mg/dL (0.2-1.3); Total Protein 6.2 g/dL (6.3-8.2); Triglycerides 127 mg/dL (<150)
[2017-10-08 13:03] LABS: Hepatitis C IgG Antibody Non-Reactive (Non-Reactive)
[2017-10-08 13:49] LABS: Hemoglobin A1C 5.2 % (4.0-6.0)
[2017-10-08 14:23] LABS: Iron Saturation 27.12 (12.00-45.00)
== END | disposition home or self-care (01) ==
LOC: LABWHC1 06:44
PROVIDERS: ATTEND Internal Medicine
DX: E11.9 Type 2 diabetes mellitus without complications (principal); R06.83 Snoring; Z13.9 Encounter for screening, unspecified
CPT/HCPCS: 36415; 80053; 80061; 83036; 83540; 83550; 85025; 86803

== ENCOUNTER → 2017-10-26 | Outpatient (CLI) | payer OTHER ==
[2017-10-26 12:01] LABS: HCT 45.5 % (34.0-46.0); HGB 15.2 gm/dL (11.4-16.0); MCH 31.5 pg (25.0-35.0); MCHC 33.4 g/dL (31.0-37.0); MCV 94.1 fL (80.0-100.0); Mean Platelet Volume 7.4; Platelet Count 161 k/uL (150-450); RBC 4.84 m/uL (3.80-5.40); RDW 13.3 % (11.5-15.5); WBC 6.7 k/uL (3.8-10.6)
== END | disposition home or self-care (01) ==
LOC: LABPAT 11:19
PROVIDERS: ATTEND Otolaryngology
DX: Z01.812 Encounter for preprocedural laboratory examination (principal); J34.2 Deviated nasal septum
CPT/HCPCS: 36415; 85027; 85610; 85730

== ENCOUNTER 2017-11-12 08:32 | Observation (INO) | payer OTHER ==
[2017-11-09 09:43] VITALS: BMI 31.1
--- NOTE | 2017-11-12 05:52 | HP ---
HISTORY AND PHYSICAL CHIEF COMPLAINT: Nasal stuffiness. HISTORY OF PRESENT ILLNESS: This patient is a 62-year-old who was recently seen in my office complaining of having difficulty breathing through her nose. The patient has a known diagnosis of sleep apnea and has used a CPAP machine in the past. She states that she snores quite loudly at night and tends to be a mouth breather. She does not use any tobacco products. At the time that she was seen in my office, clinical examination intranasally revealed severe nasal septal deviation anteriorly with subluxation off of the maxillary crest and hypertrophy of the maxillary crest. In addition to this, there was deformity of the perpendicular plate of the ethmoid bone posteriorly, a vomerine spur on the left posterior, and finally severe bilateral hypertrophy of the inferior turbinates. It was recommended that the patient undergo a Payette septoplasty with bilateral partial inferior turbinate resection under general anesthesia. PAST MEDICAL HISTORY: Past medical history reveals the patient has no known allergies to medications. Her current medications include Klonopin, Effexor, and Prilosec. REVIEW OF SYSTEMS: Review of systems is positive with respect to the gastrointestinal system which is positive for GERD (gastroesophageal reflux disorder). The remainder of the review of systems is unremarkable. PREVIOUS SURGERIES: Previous surgeries include cholecystectomy, tummy tuck, bariatric sleeve surgery, total hysterectomy. The patient is 2 para, , 2 C-sections. PHYSICAL EXAMINATION: This patient is a pleasant 62-year-old female who is alert and cooperative. HEENT EXAMINATION: Patient is normocephalic. Tympanic membranes are normal. Middle ear space is free of any fluid or infection. Pupils equal, round, react to light and accommodation. Extraocular movements are within normal limits. Intranasal examination reveals severe nasal septal deviation anteriorly, hypertrophy of the maxillary crest, deformity of the perpendicular plate of the ethmoid, vomerine spur on the left posterior, and severe hypertrophy of the inferior turbinates bilaterally. Examination of oropharynx, palpation of the neck, cranial nerves 2 through 12 and the remainder of the head and neck exam are within normal limits. CHEST/CARDIOVASCULAR: Both lung preston are clear to percussion and auscultation. The patient is in regular sinus rhythm. S1, S2 are present without evidence of any murmurs, S3s or S4s. Peripheral pulses are bilaterally symmetrical and within normal limits. ABDOMEN: There is no evidence of any masses, megaly, or tenderness. The abdomen is soft. Skin is unremarkable. Musculoskeletal and neurological are within normal limits. PELVIC/RECTAL EXAM: The pelvic rectal exam is deferred at this time because the patient has this done on a regular basis at her family physician's office. The remainder of the physical exam is unremarkable. IMPRESSION: Severe nasal septal deviation with severe bilateral hypertrophy of the inferior turbinates. PLAN: The patient is scheduled to undergo Breonna septoplasty with bilateral partial resection of the inferior turbinates under general anesthesia in a.m. ATTENTION RNS IN THE PRE-SURGICAL AREA: The only medications that I have ordered for this patient to receive preoperatively are Ofirmev 1000 mg IV and also 2 grams of Ancef IV, both to be given once an intravenous line has been established. If the pharmacy department sends any other pre-surgical prophylactic antibiotic medication or combination to the presurgical area for this patient, that order should be canceled and the medication should be returned to the pharmacy. Please make sure that the patient's account is credited appropriately. I have discussed the risks, benefits and alternative therapies for the above-mentioned procedure and for both sedation/analgesia as well as necessary blood product administration, if indicated, as they pertain to this patient. The patient has indicated his or her understanding and acceptance of the risks and procedures discussed. MMAMBERL / BENNETTN: [id number] /
[~2017-11-12 08:32] MED LIST changes: -DEXAMETHASONE SOD PHOSPHATE 10 MG/ML 1 ML VIAL IV ONE; -FAMOTIDINE 20 MG/2 ML VIAL IV PRN; -HEPARIN SODIUM,PORCINE 5,000 UNIT/ML 1 ML VIAL SQ ONE; +LACTATED RINGERS 1,000 ML IV SCH; -MIDAZOLAM 2 MG/2 ML VIAL IV PRN; -ONDANSETRON 4 MG/2 ML VIAL IVP PRN; +Pre Op ABX Message 1 EACH MISC MISCELLANE ONE
[2017-11-12] MEDS ORDERED: ACETAMINOPHEN IV (For NPO) 1,000 MG in EMPTY BAG 1 BAG IVPB ONE (09:03)
[2017-11-12] MEDS ORDERED: ceFAZolin IN SWFI 2 GM/20 ML SYRINGE IVP ONE (09:05)
[2017-11-12] MEDS ORDERED: DEXAMETHASONE SOD PHOSPHATE 10 MG/ML 1 ML VIAL IV ONE (09:35)
[2017-11-12] MEDS ORDERED: ONDANSETRON 4 MG/2 ML VIAL IVP ONE (09:35)
[2017-11-12] MEDS ORDERED: PROPOFOL 10 MG/ML 20 ML VIAL IV ONE (10:43)
[2017-11-12] MEDS ORDERED: ePHEDrine SULFATE/0.9% NACL/PF 50 MG/5 ML SYRINGE IV ONE (10:43)
[2017-11-12] MEDS ORDERED: MIDAZOLAM 2 MG/2 ML VIAL ONE (10:43)
[2017-11-12] MEDS ORDERED: SUCCINYLCHOLINE CHLORIDE 100 MG/5 ML SYR IV ONE (10:43)
[2017-11-12] MEDS ORDERED: fentaNYL (PF) 50 MCG/ML 2 ML AMP ONE (10:43)
[2017-11-12] MEDS ORDERED: LIDOCAINE 1% INJ 10MG/ML (20 ML MDV) ONE (10:43)
[2017-11-12] MEDS ORDERED: LIDOCAINE 1%-EPI 1:100,000 20 ML VIAL SQ ONE (11:15)
[2017-11-12] MEDS ORDERED: OXYMETAZOLINE 0.05% NASL SPRAY 1 SPRAY BOTTLE MISCELLANE ONE (11:15)
[2017-11-12] MEDS ORDERED: BACITRACIN 500 UNIT/GM OINT 28.4 GM TUBE TOPICAL ONE ×2 (11:19→12:25)
[2017-11-12] MEDS ORDERED: LACTATED RINGERS 1,000 ML IV ONE (11:40)
[2017-11-12] MEDS ORDERED: NALOXONE 0.4 MG/ML 1 ML VIAL IV PRN (14:14)
[2017-11-12] MEDS: HYDROmorphone 1 MG/ML 1 ML SYRINGE IVP ONE ×2 (14:37→14:50)
[2017-11-12] MEDS ORDERED: ALPRAZolam 1 MG TAB PO PRN (15:00)
[2017-11-12] MEDS ORDERED: HYDROmorphone PCA 5 MG/25 ML SYRINGE IV PRN (15:00)
[2017-11-12] MEDS ORDERED: ONDANSETRON 4 MG/2 ML VIAL IVP PRN (15:00)
[2017-11-12] MEDS: LACTATED RINGERS 1,000 ML IV SCH (15:56)
[2017-11-12] MEDS ORDERED: diphenhydrAMINE 50 MG/ML 1 ML VIAL IVP ONE (16:52)
[2017-11-12] MEDS: ACETAMINOPHEN IV (For NPO) 1,000 MG in EMPTY BAG 1 BAG IVPB SCH ×2 (17:08→22:58)
[2017-11-12] MEDS: ceFAZolin IN SWFI 2 GM/20 ML SYRINGE IVP SCH (20:03)
[2017-11-12] MEDS: clonazePAM 1 MG TAB PO SCH (20:11)
[2017-11-12] MEDS ORDERED: TEMAZEPAM 30 MG CAP PO PRN (22:00)
[2017-11-13] MEDS: LACTATED RINGERS 1,000 ML IV SCH ×2 (04:18→08:57)
[2017-11-13] MEDS: ceFAZolin IN SWFI 2 GM/20 ML SYRINGE IVP SCH ×2 (04:18→10:11)
[2017-11-13] MEDS: ACETAMINOPHEN IV (For NPO) 1,000 MG in EMPTY BAG 1 BAG IVPB SCH ×2 (05:24→12:29)
[2017-11-13] MEDS: clonazePAM 1 MG TAB PO SCH (09:02)
[2017-11-13 10:07] VITALS: BP 110/71; PULSE 71; RESP 16; TEMP 98.4
[2017-11-13] MEDS ORDERED: PANTOPRAZOLE 40 MG TABLET PO SCH (15:00)
--- NOTE | 2017-11-14 17:55 | OP ---
OPERATIVE REPORT DATE OF SURGERY: 11/11/2017 CHIEF COMPLAINT: Nasal septal deviation with hypertrophy of the inferior turbinates, severe nasal stuffiness. PREOP DIAGNOSES: Severe nasal septal deviation with severe hypertrophy of the inferior turbinates. POSTOPERATIVE DIAGNOSES: Severe nasal septal deviation with severe hypertrophy of the inferior turbinates. ANESTHESIA: General. OPERATIVE PROCEDURE: Was a Wetzel septoplasty with bilateral partial resection of the inferior turbinates. SURGEON: Dr. Sharpe. COMPLICATIONS: None. ESTIMATED BLOOD LOSS: Less than 40 mL. OPERATIVE PROCEDURE: The patient was placed on the operating table in supine position and after uneventful induction and endotracheal intubation, satisfactory general anesthesia was obtained. Next, the patient's face was draped in usual and customary fashion. Next both nasal chambers were packed with cottonoids which were saturated with Afrin nasal spray and these were placed just inferior to the inferior turbinates to achieve maximum vasoconstriction. These cottonoids were left in place for a period of approximately 7 minutes. Next, the columellar clamp was applied to the membrane portion of the nasal columella. This was pulled anteriorly. Next, using a #15 scalpel, incision was made approximately 4 mm anterior to the caudal end of the cartilage portion of septum, beginning at the dome of the nose and working down to the floor of the nose. This incision was made through the mucous membrane only. The incision was completed by using a pair of sharp angle Long scissors to incise the submucosal tissues and also to sharply incise the mucoperichondrium of the septum. This so-called hemitransfixion incision was made on the right side of the septum. Elevation of the superior tunnel was begun on the left side of the cartilage portion of septum using a combination of a Wetzel knife and a [place] in a sweeping motion from superior to inferior and anterior to posterior. This superior tunnel was carried back to and beyond the junction of the cartilage portion of the septum and the perpendicular portion of the ethmoid and back to the rostrum of the sphenoid. Next, the junction of the perpendicular plate of the ethmoid and cartilage portion of septum was subsequently divided using a [place] and a superior tunnel created and a submucoperiosteal plane was created using the blunt end of the [place] in a sweeping fashion from the superior, inferior, anterior, posterior back to the rostrum of the sphenoid. Next, a 3 or 4 mm inferior strut was removed from the inferior portion of the cartilage portion of the septum after the cartilage portion of the septum from the maxillary crest using a Breonna knife to incise Sharpey's fibers. This 4 mm strut was created and was subsequently removed, thus allowing the septum to swing back and forth to the midline. Next, inferior tunnels were created on the right and left side of the maxillary crest beginning inferiorly at the maxillary spine and working back posteriorly. These tunnels were completed posteriorly on both the right and left side of the sphenoid bone in the perpendicular plate of the ethmoid using hockey sticks. Next, the superior and inferior tunnels were joined on the right side. The left inferior tunnel was from the maxillary crest. All deformities were noted and using a chisel and mallet, the maxillary crest was taken down in the usual and customary fashion. Next, the central portion of the perpendicular plate of the plate of the ethmoid which was deformed was removed using a pair of bone biting Kerrison's. A Vomerian spur was removed using a combination of a 4 mm chisel and mallet and subsequently grasping this spur with a pair of Ivet forceps and a simple twist in removing. Having removed these deformities, this allowed the septum to swing back to the midline quite nicely. Next, attention was directed towards the inferior turbinates being with the right side. The right inferior turbinate was located and was medialized using a [place] instrument. Next, the inferior turbinate was clamped as high as possible with a curved Any clamp. The clamp was left in place for approximately 7 minutes and upon removing the clamp, the cross portion of the inferior turbinate was resected with a pair of turbinectomy scissors. It is to be noted that prior to all these procedures, cottonoids had been removed. Next, attention was directed to the left inferior turbinate where the same procedure was carried out. That is to say it was medialized with a [place] and subsequently clamped for 7 minutes using a curved Any clamp. Removing this curved Any clamp, the crushed portion of the inferior turbinate delineated a portion to be resected and this was resected using a pair of angled turbinectomy scissors in the usual fashion. In both cases, the inferior turbinates were cauterized using suction cautery. Inspection revealed that all deformities had been removed and the patient now had an excellent airway. The hemitransfixion incision was closed using a 4-0 chromic suture in a running fashion. Next, the entire nasal cavity right and left sides were dusted with Orquidea hemaderm in the usual fashion. Following this, a pair of Xomed elastic nasal splints were inserted in the right and left side respectively and these were sewn to the membrane portion of the septum using a straight Noman needle and a 4-0 silk suture. Next, a pair of 8 cm Merocel nasal tampons were inserted lateral to the silastic splints in the usual fashion. A mustache dressing was attached. At this point, the procedure was terminated. Estimated blood loss was less than 40 mL. The patient tolerated procedure well and was returned to recovery room in satisfactory condition. MMODL / IJN: [id number] /
--- NOTE | 2017-11-14 18:01 | DS ---
DISCHARGE SUMMARY DATE OF SURGERY: 11/11/2017 DATE OF DISCHARGE: 11/12/17. ADMITTING AND DISCHARGE DIAGNOSIS: Control of postoperative hemorrhaging/pain control. OPERATIVE PROCEDURE: Rawlins septoplasty with bilateral partial resection of the inferior turbinates. OPERATING SURGEON: Dr. Sharpe. COMPLICATIONS: None. ESTIMATED BLOOD LOSS: Less than 50 mL. HISTORY OF PRESENT ILLNESS: This patient is a 62-year-old female who was recently seen in the office complaining of having severe nasal stuffiness. The patient had a history of sleep apnea. Clinical examination at the time she was in the office reveals severe nasal septal deviation, hypertrophy of the maxillary crest, deformity of the perpendicular plate of the ethmoid bone posteriorly and a vomerian spur posteriorly on the left side. In addition, there was severe hypertrophy of the inferior turbinates bilaterally. It was recommended that the patient undergo a Breonna septoplasty with bilateral partial resection of inferior turbinates under general anesthesia. The patient had no known allergies. MEDICATIONS CURRENT: Included Klonopin, Effexor, and Prilosec. PREVIOUS SURGERIES: Included a tummy tuck, cholecystectomy, hysterectomy, and the patient is 2 para 0 2 C-sections. REVIEW OF SYSTEMS: Was unremarkable. HOSPITAL COURSE: The patient was taken to surgery and underwent a Breonna septoplasty with bilateral partial resection of the inferior turbinates. Hospital course: The patient's hospital course was uneventful. Postoperatively, the patient was placed on intravenous antibiotics, Ancef 2 grams IV q.8 hours, Ofirmev 1000 mg IV q.6 hours, BEARING GRINDER pump with Dilaudid, supplemental oxygen, etc. There was no significant postoperative bleeding postoperatively and again the hospital course was uneventful. DISCHARGE STATUS: The patient is discharged at this time in satisfactory condition. All nasal packing has been removed but the patient still has silastic nasal splints in place, which will be left there until her postoperative visit on 11/18/2017. The patient was given thorough instructions verbally with both her and her daughter present in the room as well as the nurse who had been taking care of her. All questions by members of the family were answered and in addition to this, patient will be provided with the exact printed instructions. She is discharged on the following medications: 1. Ceftin 500 mg p.o. b.i.d. #20. 2. Jewett 5/325 a #18 to be taken as prescribed. She has instructions which include avoiding blowing her nose, but she may resume most normal activities. She will be given an emergency number to call Dr. Sharpe's office if there are any problems. In addition, she will be given several eye patches to use to form a mustache dressing should she develop any significant drainage. I have also informed the patient and the family that I will call them on Wednesday11/14/2017 to check to see if there any problems. Again, all of the family's questions and the patient's questions were answered. The patient is discharged at this time in satisfactory condition. MMODL / IJN: [id number] /
== END 2017-11-13 15:00 | disposition home or self-care (01) ==
LOC: OR 08:32 → 3OBS 13:11 → OR 11-13 05:08 → 3OBS 11-13 05:08
PROVIDERS: ADMIT Otolaryngology; ATTEND Otolaryngology
DX: J34.2 Deviated nasal septum (principal); J34.3 Hypertrophy of nasal turbinates; K21.9 Gastro-esophageal reflux disease without esophagitis; J34.89 Other specified disorders of nose and nasal sinuses; R09.81 Nasal congestion; F41.9 Anxiety disorder, unspecified; G47.30 Sleep apnea, unspecified; Z90.710 Acquired absence of both cervix and uterus; Z90.49 Acquired absence of other specified parts of digestive tract; Z98.84 Bariatric surgery status; Z79.51 Long term (current) use of inhaled steroids; Z79.899 Other long term (current) drug therapy
CPT/HCPCS: 94760; 94762; 30520; 30140; G0378; J2250; J1200; J1100; J2405; J2001; J3010; J1170 ×2; J0131 ×2; J0330; J2704; J0690 ×2

== ENCOUNTER → 2018-02-09 | Outpatient (CLI) | payer OTHER ==
--- NOTE | 2018-02-10 11:07 | MM ---
Reason for exam: screening (asymptomatic). Last mammogram was performed 1 year ago. History: Patient is postmenopausal and has history of other cancer at age 61. Took estrogen for 1 year. Physical Findings: A clinical breast exam by your physician is recommended on an annual basis and results should be correlated with mammographic findings. MG 3D Screening Mammo W/Cad Bilateral CC and MLO view(s) were taken. Prior study comparison: January 29, 2017, left breast MG 3d work up w/cad LT. January 26, 2017, bilateral MG 3d screening mammo w/cad. There is a stable lobulated circumscribed left breast mass in the upper outer quadrant back to 2013. Benign appearing bilateral calcifications. No suspicious abnormality. Right post biopsy change. No significant changes when compared with prior studies. ASSESSMENT: Benign, BI-RAD 2 RECOMMENDATION: Routine screening mammogram of both breasts in 1 year.
== END ==
LOC: RADMAMWWP 07:48
PROVIDERS: ATTEND Internal Medicine
DX: Z12.31 Encounter for screening mammogram for malignant neoplasm of breast (principal)
CPT/HCPCS: 77063; 77067

== ENCOUNTER → 2019-03-01 | Outpatient (CLI) | payer MEDICARE ==
--- NOTE | 2019-03-01 14:14 | MM ---
Reason for exam: screening (asymptomatic). Last mammogram was performed 1 year and 1 month ago. History: Patient is postmenopausal and has history of other cancer at age 61. Took estrogen for 1 year. Physical Findings: A clinical breast exam by your physician is recommended on an annual basis and results should be correlated with mammographic findings. MG 3D Screening Mammo W/Cad Bilateral CC and MLO view(s) were taken. XCCL view(s) were taken of the left breast. Prior study comparison: February 09, 2018, bilateral MG 3d screening mammo w/cad. January 29, 2017, left breast MG 3d work up w/cad LT. There are scattered fibroglandular densities. Benign appearing bilateral calcifications. No suspicious abnormality. No significant changes when compared with prior studies. ASSESSMENT: Benign, BI-RAD 2 RECOMMENDATION: Routine screening mammogram of both breasts in 1 year.
== END | disposition home or self-care (01) ==
LOC: RADMAMWWP 10:50
PROVIDERS: ATTEND Internal Medicine
DX: Z12.31 Encounter for screening mammogram for malignant neoplasm of breast (principal)
CPT/HCPCS: 77063; 77067

== ENCOUNTER → 2020-04-01 | Outpatient (CLI) | payer MEDICARE ==
--- NOTE | 2020-04-01 10:46 | MM ---
Reason for exam: screening (asymptomatic). Last mammogram was performed 1 year and 1 month ago. History: Patient is postmenopausal and has history of other cancer at age 61. Took estrogen for 1 year. Physical Findings: A clinical breast exam by your physician is recommended on an annual basis and results should be correlated with mammographic findings. MG 3D Screening Mammo W/Cad Bilateral CC and MLO view(s) were taken. Prior study comparison: March 01, 2019, bilateral MG 3d screening mammo w/cad. February 09, 2018, bilateral MG 3d screening mammo w/cad. There are scattered fibroglandular densities. There are benign appearing round calcifications bilaterally. There is chronic nodularity in the left breast. There is no discrete abnormality. ASSESSMENT: Benign, BI-RAD 2 RECOMMENDATION: Routine screening mammogram of both breasts in 1 year.
== END | disposition home or self-care (01) ==
LOC: RADMAMWWP 07:54
PROVIDERS: ATTEND Internal Medicine
DX: Z12.31 Encounter for screening mammogram for malignant neoplasm of breast (principal)
CPT/HCPCS: 77063; 77067

== ENCOUNTER → 2020-10-17 | Outpatient (CLI) | payer MEDICARE ==
[2020-10-17 17:33] LABS: African American GFR (CKD) >90 (>60 ml/min/1.73 sqM); Blood Urea Nitrogen 15 mg/dL (7-17); Non-African American GFR(CKD) >90 (>60 ml/min/1.73 sqM)
--- NOTE | 2020-10-18 10:24 | CT ---
EXAMINATION TYPE: CT soft tissue neck w con DATE OF EXAM: 10/17/2020 COMPARISON: None HISTORY: Left sided mandibular swelling. CT DLP: 539.7 mGycm CONTRAST: Patient injected with 100ml mL of Isovue 300. TECHNIQUE: Axial images at 3 mm thick sections. Reconstructed images in the coronal plane and sagitt al plane are reviewed. FINDINGS: Limited CT sections are obtained the lung apices. The lung apices appear clear. CT neck: The torus tubarius and fossa of Rosenmuller are normal. Human Resources Analyst spaces are normal. Para nasal sinuses and mastoid air cells are clear. Parotid glands appear normal and symmetrical. Submandibular glands, are normal. Parapharyngeal spac es are normal. No suspicious adenopathy is evident. The hypopharynx appears within normal limits. Vocal cord level appear symmetrical. Thyroid as visualized is normal. Upper lung preston as visualized appear clear. Osseous structures are normal. IMPRESSIONS: 1. No suspicious abnormality to account for left-sided mandibular swelling
== END | disposition home or self-care (01) ==
LOC: RADCTMAIN 16:58
PROVIDERS: ATTEND Otolaryngology
DX: R22.1 Localized swelling, mass and lump, neck (principal)
CPT/HCPCS: 82565; 84520; 70491; 36415; Q9967

== ENCOUNTER → 2021-04-09 | Outpatient (CLI) | payer MEDICARE ==
--- NOTE | 2021-04-10 12:32 | MM ---
Reason for exam: screening (asymptomatic). Last mammogram was performed 1 year ago. History: Patient is postmenopausal and has history of other cancer at age 61. Took estrogen for 1 year. Physical Findings: A clinical breast exam by your physician is recommended on an annual basis and results should be correlated with mammographic findings. MG 3D Screening Mammo W/Cad Bilateral CC and MLO view(s) were taken. Prior study comparison: April 01, 2020, bilateral MG 3d screening mammo w/cad. March 01, 2019, bilateral MG 3d screening mammo w/cad. There are scattered fibroglandular densities. There are benign appearing round calcifications bilaterally. Previous mammotome biopsy in the right breast. There is chronic nodularity in the right breast. There is no discrete abnormality. ASSESSMENT: Benign, BI-RAD 2 RECOMMENDATION: Routine screening mammogram of both breasts in 1 year.
== END | disposition home or self-care (01) ==
LOC: RADMAMWWP 08:38
PROVIDERS: ATTEND Family Medicine
DX: Z12.31 Encounter for screening mammogram for malignant neoplasm of breast (principal); Z78.0 Asymptomatic menopausal state
CPT/HCPCS: 77063; 77067

== ENCOUNTER → 2022-04-14 | Outpatient (CLI) | payer MEDICARE ==
--- NOTE | 2022-04-14 13:06 | MM ---
Reason for Exam: Screening (asymptomatic). Last screening mammogram was performed 12 month(s) ago. Patient History: Menarche at age 10. First Full-Term at age 21. Left ovary removed at age 43. Right ovary removed at age 43. Hysterectomy at age 43. Postmenopausal. Patient used Estrogen for 1 year. Risk Values: Sidra 5 year model risk: 1.5%. NCI Lifetime model risk: 5.0%. Prior Study Comparison: 03/01/2019 Bilateral Screening Mammogram, [facility]. 04/01/2020 Bilateral Screening Mammogram, [facility]. 04/09/2021 Bilateral Screening Mammogram, [facility]. Tissue Density: There are scattered fibroglandular densities. Findings: Analyzed By CAD. There is no suspicious group of microcalcifications or new suspicious mass in either breast. Benign-appearing round calcifications within both breasts. Stable chronic nodularity within both breasts. No significant change from prior exams. Overall Assessment: Benign, BI-RAD 2 Management: Screening Mammogram of both breasts in 1 year. A clinical breast exam by your physician is recommended on an annual basis and results should be correlated with mammographic findings. Electronically signed and approved by: Luis Miguel Simpson D.O.
== END | disposition home or self-care (01) ==
LOC: RADMAMWWP 11:17
PROVIDERS: ATTEND Family Medicine
DX: Z12.31 Encounter for screening mammogram for malignant neoplasm of breast (principal); Z78.0 Asymptomatic menopausal state; Z90.721 Acquired absence of ovaries, unilateral
CPT/HCPCS: 77063; 77067

== ENCOUNTER 2022-11-26 09:25 | Observation (INO) | payer MEDICARE ==
[2022-11-26] MEDS ORDERED: SODIUM CHLORIDE 0.9% 500 ML 500 ML IV STA (09:35)
--- NOTE | 2022-11-26 09:56 | ED ---
General Adult HPI - General Chief complaint: Anxiety Stated complaint: Anxiety Time Seen by Provider: 11/26/22 09:30 Source: patient, EMS, RN notes reviewed, old records reviewed Mode of arrival: EMS Limitations: no limitations - History of Present Illness Initial comments: This is a 67-year-old female who states she woke up and didn't notice any weakne ss in the left side however about 10 minutes after waking she went to walk down the stairs and felt like her leg was weak from the thigh down per patient states her foot was slapping to the ground because she couldn't completely control. Patient states she was also bearing to the left as well. Patient's stated that he thought her voice was a little little bit slurred as well. Patient states all symptoms resolved after about 10 or 15 minutes. Patient states at the scene she was extremely anxious but she didn't believe she was having a stroke. Patient denies headache patient denies any numbness weakness currently. Patient denies chest pain palpitations difficulty breathing shortn ess of breath per patient denies any recent fever chills or cough per patient denies any similar symptoms in the past. Patient denies abdominal pain patient denies nausea vomiting diarrhea. - Related Data Home Medications Medication Instructions Recorded Confirmed Venlafaxine HCl [Effexor] 150 mg PO QAM 09/25/13 10/12/18 clonazePAM [KlonoPIN] 2 mg PO HS 10/13/17 10/12/18 L.acidoph,Paracasei, B.lactis 1 each PO DAILY 10/12/18 10/12/18 [Probiotic] Previous Rx's Medication Instructions Recorded Omeprazole 40 mg PO DAILY #90 capsule. 06/11/16 Allergies Allergy/AdvReac Type Severity Reaction Status Date / Time No Known Allergies Allergy Verified 11/26/22 09:40 Review of Systems ROS Statement: Those systems with pertinent positive or pertinent negative responses have been documented in the HPI. ROS Other: All systems not noted in ROS Statement are negative. 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 Patient is nontoxic and well- hydrated and is in mild distress. ENT: Neck is soft and supple. No significant lymphadenopathy is noted. Oropharynx is clear. Moist mucous membranes. Neck has full range of motion without eliciting any pain. EYES: The sclera were anicteric and conjunctiva were pink and moist. Extraocular movements were intact and pupils were equal round and reactive to light. Eyelids were unremarkable. PULMONARY: Unlabored respirations. Good breath sounds bilaterally. No audible rales rhonchi or wheezing was noted. CARDIOVASCULAR: There is a regular rate and rhythm without any murmurs gallops or rubs. ABDOMEN: Soft and nontender with normal bowel sounds. SKIN: Skin is clear with no lesions or rashes and otherwise unremarkable. NEUROLOGIC: Patient is alert and oriented x3. Cranial nerves II through XII are grossly intact. Motor and sensory are also intact. Normal speech, volume and content. Symmetrical smile. NIH scale currently is 0 MUSCULOSKELETAL: Normal extremities with adequate strength and full range of motion. LYMPHATICS: No significant lymphadenopathy is noted PSYCHIATRIC: Normal psychiatric evaluation. Limitations: no limitations Course Vital Signs 11/26/22 11/26/22 11/26/22 09:33 10:03 11:00 Temperature 98.6 F Pulse Rate 93 77 Respiratory 18 18 Rate Blood Pressure 134/87 123/73 O2 Sat by Pulse 95 93 L Oximetry 11/26/22 12:00 Temperature Pulse Rate 75 Respiratory 18 Rate Blood Pressure 137/76 O2 Sat by Pulse 93 L Oximetry Medical Decision Making - Medical Decision Making EKG was interpreted by myself shows a sinus rhythm at 64 bpm HI interval 158 QRS is 93 QT intervals 43 QTC is 413. Patient's EKG shows no ST segment elevation or depression. Was pt. sent in by a medical professional or institution (Dr., PA, NUCLEAR MEDICINE SPECIALIST, urgent care, hospital, or [facility]...) When possible be specific @ -No Did you speak to anyone other than the patient for history (EMS, parent, family, police, friend...)? What history was obtained from this source @ -No Did you review nursing and triage notes (agree or disagree)? Why? @ -I reviewed and agree with nursing and triage notes Were old charts reviewed (outside hosp., previous admission, EMS record, old EKG, old radiological studies, urgent care reports/EKG's, [facility] records)? Report findings @ -I reviewed prior labs and prior radiological studies on this patient Differential Diagnosis (chest pain, altered mental status, abdominal pain women, abdominal pain men, vaginal bleeding, weakness, fever, dyspnea, syncope, headache, dizziness, GI bleed, back pain, seizure, CVA, palpatations, mental health, musculoskeletal)? @ -Differential CVA Ischemic stroke, hemorrhagic stroke, brain tumor, atypical migraine, Wernicke's encephalopathy, seizure, multiple sclerosis, meningitis, encephalitis, hypoglycemia, Guillain-Guy, electrolytes disturbance, myasthenia gravis.... This is not meant to be an all-inclusive list EKG interpreted by me (3pts min.). @ -As above X-rays interpreted by me (1pt min.). @ -Chest x-ray shows no acute abnormality CT interpreted by me (1pt min.). @ -CT of the brain shows no acute abnormality and CTA shows no acute abnormality U/S interpreted by me (1pt. min.). @ -None done What testing was considered but not performed or refused? (CT, X-rays, U/S, labs)? Why? @ -None What meds were considered but not given or refused? Why? @ -None Did you discuss the management of the patient with other professionals (professionals i.e. CAESAR Eason, NUCLEAR MEDICINE SPECIALIST, lab, RT, psych nurse, manager social work, concrete mixer truck driver, teacher, life science technical officer, case fitter)? Give summary @ -I spoke with the [facility] hospitalist and he agreed to admit the patient Was smoking cessation discussed for >3mins.? @ -No Was critical care preformed (if so, how long)? @ -No Were there social determinants of health that impacted care today? How? (Homelessness, low income, unemployed, alcoholism, drug addiction, transportation, low edu. Level, literacy, decrease access to med. care, skilled nursing, rehab)? @ -No Was there de-escalation of care discussed even if they declined (Discuss DNR or withdrawal of care, Hospice)? DNR status @ -No What co-morbidities impacted this encounter? (DM, HTN, Smoking, COPD, CAD, Cancer, CVA, ARF, Chemo, Hep., AIDS, mental health diagnosis, sleep apnea, morbid obesity)? @ -None Was patient admitted / discharged? Hospital course, mention meds given and route, prescriptions, significant lab abnormalities, going to OR and other pertinent info. @ -Patient was asymptomatic throughout her course. Patient was given aspirin in the emergency pertinent patient had a CAT scan of the brain and CTA of the head neck and lab work and all of which was normal. [facility] with neurology consult Undiagnosed new problem with uncertain prognosis? @ -No Drug Therapy requiring intensive monitoring for toxicity (Heparin, Nitro, Insulin, Cardizem)? @ -No Were any procedures done? @ -No Diagnosis/symptom? @ -TIA Acute, or Chronic, or Acute on Chronic? @ -Acute Uncomplicated (without systemic symptoms) or Complicated (systemic symptoms)? @ -Complicated Side effects of treatment? @ -No Exacerbation, Progression, or Severe Exacerbation? @ -No Poses a threat to life or bodily function? How? (Chest pain, [place], [place], pneumonia, PE, COPD, DKA, ARF, appy, cholecystitis, CVA, Diverticulitis, Homicidal, Suicidal, threat to staff... and all critical care pts) @ -Yes this could lead to a massive stroke and possibly - Lab Data Result diagrams: 11/26/22 09:44 11/26/22 09:44 Lab Results 11/26/22 11/26/22 11/26/22 Range/Units 09:44 09:44 09:44 WBC 8.2 (3.8-10.6) k/uL RBC 5.23 (3.80-5.40) m/uL Hgb 15.4 (11.4-16.0) gm/dL Hct 47.7 H (34.0-46.0) % MCV 91.1 (80.0-100.0) fL MCH 29.5 (25.0-35.0) pg MCHC 32.4 (31.0-37.0) g/dL RDW 13.5 (11.5-15.5) % Plt Count 153 (150-450) k/uL MPV 8.1 Neutrophils % 69 % Lymphocytes % 22 % Monocytes % 5 % Eosinophils % 2 % Basophils % 1 % Neutrophils # 5.6 (1.3-7.7) k/uL Lymphocytes # 1.8 (1.0-4.8) k/uL Monocytes # 0.4 (0-1.0) k/uL Eosinophils # 0.1 (0-0.7) k/uL Basophils # 0.0 (0-0.2) k/uL PT 10.4 (9.0-12.0) sec INR 1.0 (<1.2) APTT 21.6 L (22.0-30.0) sec Sodium 140 (137-145) mmol/L Potassium 4.3 (3.5-5.1) mmol/L Chloride 104 (98-107) mmol/L Carbon Dioxide 27 (22-30) mmol/L Anion Gap 9 mmol/L BUN 11 (7-17) mg/dL Creatinine 0.62 (0.52-1.04) mg/dL Est GFR (CKD-EPI)AfAm >90 (>60 ml/min/1.73 sqM) Est GFR (CKD-EPI)NonAf >90 (>60 ml/min/1.73 sqM) Glucose 154 H (74-99) mg/dL Calcium 9.2 (8.4-10.2) mg/dL Total Bilirubin 1.1 (0.2-1.3) mg/dL AST 52 H (14-36) U/L ALT 55 H (4-34) U/L Alkaline Phosphatase 81 (38-126) U/L Creatine Kinase 65 (30-135) U/L Troponin I (0.000-0.034) ng/mL Total Protein 7.2 (6.3-8.2) g/dL Albumin 4.2 (3.5-5.0) g/dL 11/26/22 Range/Units 09:44 WBC (3.8-10.6) k/uL RBC (3.80-5.40) m/uL Hgb (11.4-16.0) gm/dL Hct (34.0-46.0) % MCV (80.0-100.0) fL MCH (25.0-35.0) pg MCHC (31.0-37.0) g/dL RDW (11.5-15.5) % Plt Count (150-450) k/uL MPV Neutrophils % % Lymphocytes % % Monocytes % % Eosinophils % % Basophils % % Neutrophils # (1.3-7.7) k/uL Lymphocytes # (1.0-4.8) k/uL Monocytes # (0-1.0) k/uL Eosinophils # (0-0.7) k/uL Basophils # (0-0.2) k/uL PT (9.0-12.0) sec INR (<1.2) APTT (22.0-30.0) sec Sodium (137-145) mmol/L Potassium (3.5-5.1) mmol/L Chloride (98-107) mmol/L Carbon Dioxide (22-30) mmol/L Anion Gap mmol/L BUN (7-17) mg/dL Creatinine (0.52-1.04) mg/dL Est GFR (CKD-EPI)AfAm (>60 ml/min/1.73 sqM) Est GFR (CKD-EPI)NonAf (>60 ml/min/1.73 sqM) Glucose (74-99) mg/dL Calcium (8.4-10.2) mg/dL Total Bilirubin (0.2-1.3) mg/dL AST (14-36) U/L ALT (4-34) U/L Alkaline Phosphatase (38-126) U/L Creatine Kinase (30-135) U/L Troponin I <0.012 (0.000-0.034) ng/mL Total Protein (6.3-8.2) g/dL Albumin (3.5-5.0) g/dL Disposition Clinical Impression: TIA (transient ischemic attack) Disposition: ADMITTED IP TO THIS [facility] Time of Disposition: 13:33
[2022-11-26 10:01] LABS: Basophils % (A) 1 %; Eosinophils # (A) 0.1 k/uL (0-0.7); Eosinophils % (A) 2 %; HCT 47.7 % (34.0-46.0); HGB 15.4 gm/dL (11.4-16.0); Lymphocytes # (A) 1.8 k/uL (1.0-4.8); Lymphocytes % (A) 22 %; MCH 29.5 pg (25.0-35.0); MCHC 32.4 g/dL (31.0-37.0); MCV 91.1 fL (80.0-100.0); Mean Platelet Volume 8.1; Monocytes # (A) 0.4 k/uL (0-1.0); Monocytes % (A) 5 %; Neutrophils # (A) 5.6 k/uL (1.3-7.7); Neutrophils % (A) 69 %; Platelet Count 153 k/uL (150-450); RBC 5.23 m/uL (3.80-5.40); RDW 13.5 % (11.5-15.5); WBC 8.2 k/uL (3.8-10.6)
--- NOTE | 2022-11-26 10:11 | XR ---
EXAMINATION TYPE: XR chest 2V DATE OF EXAM: 11/26/2022 COMPARISON: None HISTORY: 67-year-old female confusion, altered mental status, left-sided weakness TECHNIQUE: PA and lateral views FINDINGS: Heart is normal size. Atherosclerotic arch calcifications. There is some focal patchy opacity at the medial right base. Otherwise, no other consolidation or pleural effusion. IMPRESSION: Some focal patchy atelectasis versus developing infiltrate at the medial right base. Otherwise, no ac [place]-apache process seen.
[2022-11-26 10:17] LABS: Prothrombin Time 10.4 sec (9.0-12.0)
[2022-11-26 10:23] LABS: Partial Thromboplastin Time 21.6 sec (22.0-30.0)
[2022-11-26 10:47] LABS: ALT 55 U/L (4-34); AST 52 U/L (14-36); African American GFR (CKD) >90 (>60 ml/min/1.73 sqM); Albumin 4.2 g/dL (3.5-5.0); Alkaline Phosphatase 81 U/L (38-126); Anion Gap 9 mmol/L; Blood Urea Nitrogen 11 mg/dL (7-17); Calcium 9.2 mg/dL (8.4-10.2); Carbon Dioxide 27 mmol/L (22-30); Chloride 104 mmol/L (98-107); Creatine Kinase 65 U/L (30-135); Glucose 154 mg/dL (74-99); Non-African American GFR(CKD) >90 (>60 ml/min/1.73 sqM); Potassium 4.3 mmol/L (3.5-5.1); Sodium 140 mmol/L (137-145); Total Bilirubin 1.1 mg/dL (0.2-1.3); Total Protein 7.2 g/dL (6.3-8.2)
--- NOTE | 2022-11-26 11:47 | CT ---
EXAMINATION TYPE: CT brain wo con CT DLP: 1089 mGycm, Automated exposure control for dose reduction was used. DATE OF EXAM: 11/26/2022 11:26 AM COMPARISON: None. CLINICAL INDICATION:Female, 67 years old with history of Neuro deficit, acute, stroke suspected, Left sided numbness. TECHNIQUE: Brain: Axial CT images of the brain were obtained with coronal and sagittal reformats created and rev iewed. Contrast used: None. Oral contrast used: None. FINDINGS: Brain: Extra-axial spaces: No abnormal extra-axial fluid collections. Ventricular system: Within normal limits Cerebral parenchyma: No acute intraparenchymal hemorrhage or mass effect. The edwards-white junction is well differentiated. Scattered hypoattenuating areas are seen within the white matter. Cerebellum: Unremarkable. Mass effect: No evidence of midline shift. Intracranial vasculature: Atherosclerotic calcifications of the intracranial vessels. Soft tissues: Normal. Calvarium/osseous structures: No depressed skull fracture. Paranasal sinuses and mastoid air cells: Mild scattered paranasal sinus disease. Visualized orbits: Bilaterally aphakia. IMPRESSION: 1. No acute intracranial process. 2. Nonspecific white matter changes, likely secondary to chronic small vessel ischemic disease.
--- NOTE | 2022-11-26 12:04 | CT ---
EXAMINATION TYPE: CT angio head neck CT DLP: 502.5 mGycm, Automated exposure control for dose reduction was used. DATE OF EXAM: 11/26/2022 11:37 AM COMPARISON: CT brain same day. CLINICAL INDICATION:Female, 67 years old with history of Neuro deficit, acute, stroke suspected; PHH, Left sided numbness. TECHNIQUE: Axially acquired helical CT angiogram of the head and neck was obtained with contrast. Axi al images are supplemented with 3D reconstructions which [facility] NASCET criteria used. Contrast used:65ml mL of Isovue 370 with IV Contrast, Oral contrast used: None. FINDINGS: CTA HEAD: No evidence of acute intracranial hemorrhage, mass effect, or midline shift. The ventricles, sulci, a nd cisterns are unremarkable. Bilaterally aphakia. The visualized portions of the internal carotid arteries, middle cerebral arteries, anterior cerebral arteries, and posterior cerebral arteries are patent. The basilar and vertebral arteries are patent. CTA NECK: Right Carotid System: The common carotid artery and external carotid artery are patent. The carotid bifurcation demonstrate s no evidence of hemodynamically significant stenosis. The remaining portions of the internal carotid artery demonstrate normal size without significant narrowing. Left Carotid System: The common carotid artery and external carotid artery are patent. The carotid bifurcation demonstrate s no evidence of hemodynamically significant stenosis. The remaining portions of the internal carotid artery demonstrate normal size without significant narrowing. Vertebral arteries are patent without evidence hemodynamically significant stenosis. There is a three-vessel aortic arch with the left vertebral artery origin off the aortic arch in the left common carotid artery arising off the brachycephalic trunk.. The origins of the great vessels ar e patent. No evidence of hemodynamically significant stenosis. IMPRESSION: 1. No evidence of dissection of the cervical internal carotid arteries or vertebral arteries or any e vidence of significant stenosis at the carotid bifurcations. 2. No evidence of intracranial high-grade stenosis or intracranial aneurysm.
[2022-11-26] MEDS ORDERED: ACETAMINOPHEN TAB 325 MG TAB PO PRN (16:24)
--- NOTE | 2022-11-26 16:54 | P.HPIM ---
History of Present Illness H&P Date: 11/26/22 Chief Complaint: Numbness 67-year-old lady with past medical history significant for osteoarthritis, history of basal cell skin cancer, presented to the emergency department with complaints of transient episode of weakness on left side. Patient at time of presentation to the ED had resolution of symptoms however she was anxious and presented to the emergency department to make sure she is not having a stroke. Patient denied associated fever, chills chest pain nausea vomiting abdominal pain Left and leg weakness, resolved , Patient noted left face droop as well resolved by the [facility] arrived REVIEW OF SYSTEMS: CONSTITUTIONAL: No fever, no malaise, no fatigue. HEENT: No recent visual problems or hearing problems. Denied any sore throat. CARDIOVASCULAR: No chest pain, orthopnea, PND, no palpitations, no syncope. PULMONARY: No shortness of breath, no cough, no hemoptysis. GASTROINTESTINAL: No diarrhea, no nausea, no vomiting, no abdominal pain. NEUROLOGICAL: No headaches, no weakness, no numbness. HEMATOLOGICAL: Denies any bleeding or petechiae. GENITOURINARY: Denies any burning micturition, frequency, or urgency. MUSCULOSKELETAL/RHEUMATOLOGICAL: Denies any joint pain, swelling, or any muscle pain. ENDOCRINE: Denies any polyuria or polydipsia. The rest of the 14-point review of systems is negative. PHYSICAL EXAMINATION: GENERAL: The patient is alert and oriented x3, not in any acute distress. Well developed, well nourished. HEENT: Pupils are round and equally reacting to light. EOMI. No scleral icterus. No conjunctival pallor. Normocephalic, atraumatic. No pharyngeal erythema. No thyromegaly. CARDIOVASCULAR: S1 and S2 present. No murmurs, rubs, or gallops. PULMONARY: Chest is clear to auscultation, no wheezing or crackles. ABDOMEN: Soft, nontender, nondistended, normoactive bowel sounds. No palpable organomegaly. MUSCULOSKELETAL: No joint swelling or deformity. EXTREMITIES: No cyanosis, clubbing, or pedal edema. NEUROLOGICAL: Gross neurological examination did not reveal any focal deficits. 5x 5 Mototr strenght bilateral SKIN: No rashes. 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/03/2012, panniculectomy 05/14/16; Colonoscopy; EGD Past Anesthesia/Blood Transfusion Reactions: No Reported Reaction Past Psychological History: Anxiety Past Alcohol Use History: None Reported Past Drug Use History: None Reported - Past Family History Brother(s) Additional Family Medical History / Comment(s): heart problems Mother Family Medical History: Cancer Additional Family Medical History / Comment(s): Mom of lung cancer Father Family Medical History: CVA/TIA, Diabetes Mellitus Medications and Allergies Home Medications Medication Instructions Recorded Confirmed Type Omeprazole 40 mg PO DAILY #90 capsule. 06/11/16 11/26/22 Rx clonazePAM [KlonoPIN] 2 mg PO HS 10/13/17 11/26/22 History Venlafaxine HCl [Effexor XR] 150 mg PO DAILY 11/26/22 11/26/22 History Allergies Allergy/AdvReac Type Severity Reaction Status Date / Time No Known Allergies Allergy Verified 11/26/22 14:10 Physical Exam Vitals: Vital Signs Temp Pulse Resp BP Pulse Ox 11/26/22 12:00 75 18 137/76 93 L 11/26/22 11:00 77 18 123/73 93 L 11/26/22 10:03 95 11/26/22 09:33 98.6 F 93 18 134/87 Intake and Output 11/26/22 11/26/22 11/26/22 06:59 14:59 22:59 Other: Weight 79.379 kg Results CBC & Chem 7: 11/26/22 09:44 11/26/22 09:44 Labs: Abnormal Lab Results - Last 24 Hours (Table) 11/26/22 11/26/22 11/26/22 Range/Units 09:44 09:44 09:44 Hct 47.7 H (34.0-46.0) % APTT 21.6 L (22.0-30.0) sec Glucose 154 H (74-99) mg/dL AST 52 H (14-36) U/L ALT 55 H (4-34) U/L Assessment and Plan Assessment: Assessment and plan Left upper extremity weakness rule out CVA versus TIA History of anxiety * Workup initiated in ER including a CT head, CT angina head and neck which was negative * Neurology consulted, neurochecks ordered * Lipid panel ordered * Continue patient on aspirin and Lipitor * Based on MRI results we'll order further workup * Full code *
[2022-11-26] MEDS: ALPRAZolam 0.5 MG TAB PO STA (20:17)
[2022-11-26] MEDS: clonazePAM 1 MG TAB PO SCH (20:26)
[2022-11-26] MEDS: HEPARIN SODIUM,PORCINE 5,000 UNIT/ML 1 ML VIAL SQ SCH (22:32)
[2022-11-27] MEDS: PANTOPRAZOLE 40 MG TABLET PO SCH (06:16)
[2022-11-27] MEDS: HEPARIN SODIUM,PORCINE 5,000 UNIT/ML 1 ML VIAL SQ SCH ×2 (07:52→19:56)
[2022-11-27] MEDS: ATORVASTATIN 40 MG TAB PO SCH (07:52)
[2022-11-27] MEDS: VENLAFAXINE HCL ER 150 MG CAP PO SCH (07:52)
[2022-11-27 09:03] LABS: HCT 44.3 % (37.2-46.3); HGB 14.3 d/dL (12.0-15.0); MCH 29.3 pg (27.0-32.0); MCHC 32.3 d/dL (32.0-37.0); MCV 90.8 FL (80.0-97.0); Mean Platelet Volume 10.8 FL (9.5-12.2); NRBC Per 100 WBC 0 X 10*3/uL (0.00-0.01); Platelet Count 167 X 10*3/uL (140-440); RBC 4.88 X 10*6/uL (4.10-5.20); RDW 13.2 % (11.5-14.5); WBC 7.21 X 10*3/uL (4.50-10.00)
[2022-11-27 09:17] LABS: BUN/Creat Ratio 15.38 Ratio (12.00-20.00); Blood Urea Nitrogen 12.3 mg/dL (9.0-27.0); Calcium 9.3 mg/dL (8.7-10.3); Carbon Dioxide 30.3 mmol/L (21.6-31.8); Chloride 105 mmol/L (96-109); Chol/HDL Ratio 4.12 Ratio; Glucose 99 mg/dL (70-110); LDL Cholesterol,Calculated 91.7 mg/dL (0.0-131.0); Potassium 4.5 mmol/L (3.5-5.5); Sodium 144 mmol/L (135-145)
[2022-11-27] MEDS ORDERED: ALPRAZolam 0.5 MG TAB PO STA (10:31)
--- NOTE | 2022-11-27 12:13 | P.CNNES ---
History of Present Illness Consult date: 11/27/22 Requesting physician: Linwood Garnica Reason for Consult: TIA History of Present Illness: This is a 67-year-old woman with history of anxiety, depression who presented emergency department on 11/26/2022 because of episode of left lower extremity weakness. Patient stated that yesterday around 8:30 at a.m. she noticed that she is a feeling off and noticed that she is having left lower extremity weakness upon trying using the stairs. She felt she was swaying towards the left. Otherwise denies of any other neurological issues. Her episode lasted between 10-15 minutes and by time EMS arrived she stated that her episode resolved. She stated prior to 8:30 she did not have any focal deficits the that she felt that she stated she was awake for brief but she was able to walk around without any issues She denies of any history of stroke in the past. She stated that possibly about 15 years or more ago she had episode where she had visual disturbance and was very brief but did not seek any medical attention. Patient is not on any antiplatelets. She currently feels back to baseline. Denies history of hypertension, atrial fibrillation. Denies any history of diabetes or any heart attacks. Some of the workup during his hospital visit consisted of: Hemoglobin A1c is 6.2 Lipid panel is triglyceride 174, cholesterol is 167, LDL is 91 and HDL is 40. TSH is 3.62 CT of the head is reported as no acute intercranial process. Nonspecific white matter changes, likely secondary due to chronic small vessel ischemic disease. I personally reviewed the CT and there is no acute or subacute ischemia. CT of drug. The head and neck is reported as no evidence of dissection of cervical internal carotid artery or vertebral artery or any evidence of significant stenosis at the carotid bifurcation. No evidence of intracranial high-grade stenosis or intracranial aneurysm. Review of Systems Review of system: The 12 point system was reviewed and apparent positive and negative per HPI. 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/03/2012, panniculectomy 05/14/16; Colonoscopy; EGD Past Anesthesia/Blood Transfusion Reactions: No Reported Reaction Past Psychological History: Anxiety Past Alcohol Use History: None Reported Past Drug Use History: None Reported - Past Family History Brother(s) Additional Family Medical History / Comment(s): heart problems Mother Family Medical History: Cancer Additional Family Medical History / Comment(s): Mom of lung cancer Father Family Medical History: CVA/TIA, Diabetes Mellitus Medications and Allergies Home Medications Medication Instructions Recorded Confirmed Type Omeprazole 40 mg PO DAILY #90 capsule. 06/11/16 11/26/22 Rx clonazePAM [KlonoPIN] 2 mg PO HS 10/13/17 11/26/22 History Venlafaxine HCl [Effexor XR] 150 mg PO DAILY 11/26/22 11/26/22 History Allergies Allergy/AdvReac Type Severity Reaction Status Date / Time No Known Allergies Allergy Verified 11/26/22 14:10 Physical Examination - Vital Signs Vital Signs: Vital Signs Temp Pulse Pulse Resp BP BP Pulse Ox 11/27/22 08:00 72 18 11/27/22 07:00 98.3 F 72 18 149/90 98 11/27/22 02:20 97.6 F 68 16 129/83 94 L 11/26/22 22:00 98.6 F 67 16 148/90 99 11/26/22 18:21 82 18 95 11/26/22 18:00 18 138/71 11/26/22 17:00 72 18 138/71 94 L Intake and Output 11/26/22 11/27/22 11/27/22 22:59 06:59 14:59 Intake Total 118 Balance 118 Intake: Oral 118 Other: # Voids 0 1 1 GENERAL: The patient is lying in bed and is not in acute distress. NEUROLOGICAL: Higher mental function: The patient is awake, alert, oriented to self, place and time. Patient is following commands. No aphasia and no neglect. Cranial nerves: The pupils are round, equal and reactive to light and accommodation. Visual preston are full to confrontation throughout. Extraocular movement is intact no nystagmus is noted. Facial sensation is normal to touch throughout. The facial strength is normal throughout. Hearing is normal bilaterally to hand rub. Tongue is midline and moved [id number] without any difficulty. No dysarthria is noted. Shoulder shrug is normal bilaterally. Motor: Gait is normal. The strength is 5 over 5 throughout. Normal tone and bulk. Cerebellum: Normal finger to nose heel to chin bilaterally. Sensation: Sensation is normal to touch throughout. Reflexes (right/left): 2+ throughout. Plantars are downgoing bilaterally. Results - Laboratory Findings CBC and BMP: 11/27/22 06:04 11/27/22 06:04 Abnormal Lab Findings: Abnormal Labs 11/26/22 11/26/22 11/26/22 09:44 09:44 09:44 Hct 47.7 H APTT 21.6 L Glucose 154 H Hemoglobin A1c AST 52 H ALT 55 H Triglycerides 11/26/22 11/27/22 09:44 06:04 Hct APTT Glucose Hemoglobin A1c 6.2 H AST ALT Triglycerides 174.00 H Assessment and Plan Assessment: This is a 67-year-old woman well had episodes of a left lower extremity weakness around 8:30 AM on 11/26/2022 and episode lasted between 10-15 minutes. Likely transient ischemic attack (transient episode of left lower extremity weakness). Prediabetes and hemoglobin A1c is 6.2. History of anxiety History of depression Plan: Patient is on aspirin 81 mg daily. In addition I started the patient on Plavix 75 mg daily. Patient to be on dual antiplatelets for 21 days and after 21 days. Plavix but continue aspirin indefinitely She was not taking any antiplatelets prior to this. She started on Lipitor 40 mg daily for signature prophylaxis MRI of the brain, 2-D echo was ordered and is pending Continue neuro checks On cardiac monitoring PT, OT and BACK END WEB DEVELOPER are consulted For DVT prophylaxis the patient is on subcu heparin 5000 units every 12 hours The plan was discussed with the patient. Thank you for the consultation Time with Patient: Greater than 30
[2022-11-27] MEDS: ALPRAZolam 0.5 MG TAB PO STA (13:47)
[2022-11-27] MEDS: CLOPIDOGREL 75 MG TAB PO SCH (16:05)
--- NOTE | 2022-11-27 16:11 | MR ---
EXAMINATION TYPE: MR brain wo/w con DATE OF EXAM: 11/27/2022 1:45 PM CLINICAL INDICATION:Female, 67 years old with history of Rule out CVA; Rule out CVA. Left sided numbn ess COMPARISON: 11/26/2022 CT TECHNIQUE: Multi planar, multi sequence imaging was performed through the brain including: T1, T2, In version recovery, susceptibility weighted imaging and gradient echo imaging and Diffusion weighted im aging. The patient was then given intravenous contrast and multi planar, T1 fat-saturation images wer e obtained. IV Contrast: 8 cc Gadavist FINDINGS: The edwards-white junctions, ventricular system, basal cisterns appear unremarkable. Diffusion-weighted imaging shows no evidence of restricted diffusion to suggest acute/subacute infarct. Intracranial art erial flow voids are maintained. Midline structures show no abnormality. Scattered foci of high T2 si gnal intensity are seen within the periventricular white matter. Some of these white matter changes a re orthogonal to the ventricles. The susceptibility weighted images do not reveal any evidence for mi crown pouncer-hemorrhage. After administration of gadolinium, no abnormal enhancement is seen. The bone marrow signal is within normal limits. Paranasal sinuses and mastoid air cells: No significant paranasal sinus disease. Visualized orbits: Bilateral aphakia IMPRESSION: 1. No evidence of intracranial mass, acute/subacute infarct, or abnormal enhancement. 2. White matter changes, some of which are orthogonal to the ventricles correlate for demyelination.
--- NOTE | 2022-11-27 16:28 | P.PN ---
Subjective Progress Note Date: 11/27/22 * 67-year-old lady with past medical history significant for osteoarthritis, history of basal cell skin cancer, presented to the emergency department with complaints of transient episode of weakness on left side. Patient at time of presentation to the ED had resolution of symptoms however she was anxious and presented to the emergency department to make sure she is not having a stroke. Patient denied associated fever, chills chest pain nausea vomiting abdominal pain * Left and leg weakness, resolved , Patient noted left face droop as well resolved by the [facility] arrived * 11/27> patient seen and evaluated bedside, symptoms have resolved, neurology would like to monitor overnight MRI brain reviewed Objective - Vital Signs Vital signs: Vital Signs Temp 98.4 F 11/27/22 14:28 Pulse 79 11/27/22 14:28 Resp 18 11/27/22 14:28 BP 121/83 11/27/22 14:28 Pulse Ox 97 11/27/22 14:28 FiO2 Intake & Output 11/26/22 11/27/22 11/27/22 18:59 06:59 18:59 Intake Total 118 Balance 118 Weight 79.379 kg Intake: Oral 118 Other: # Voids 1 1 - Exam PHYSICAL EXAMINATION: GENERAL: The patient is alert and oriented x3, not in any acute distress. Well developed, well nourished. HEENT: Pupils are round and equally reacting to light. EOMI. No scleral icterus. No conjunctival pallor. Normocephalic, atraumatic. No pharyngeal erythema. No thyromegaly. CARDIOVASCULAR: S1 and S2 present. No murmurs, rubs, or gallops. PULMONARY: Chest is clear to auscultation, no wheezing or crackles. ABDOMEN: Soft, nontender, nondistended, normoactive bowel sounds. No palpable organomegaly. MUSCULOSKELETAL: No joint swelling or deformity. EXTREMITIES: No cyanosis, clubbing, or pedal edema. NEUROLOGICAL: Gross neurological examination did not reveal any focal deficits. SKIN: No rashes. - Labs CBC & Chem 7: 11/27/22 06:04 11/27/22 06:04 Labs: Abnormal Lab Results - Last 24 Hours (Table) 11/26/22 11/27/22 Range/Units 09:44 06:04 Hemoglobin A1c 6.2 H (<=6.0) % Triglycerides 174.00 H (0.00-149.00) mg/dL Assessment and Plan Assessment: Assessment and plan Left upper extremity weakness ruled out CVA >> likely TIA History of anxiety * Workup initiated in ER including a CT head, CT angina head and neck which was negative * MRI brain negative for acute CVA, white matter ischemic changes noted * Continue aspirin and Plavix for 21 days followed by aspirin only * Neurology consulted, neurochecks ordered * Lipid panel reviewed * Continue patient on aspirin and Lipitor * Full code *
--- NOTE | 2022-11-27 18:08 | CA ---
Transthoracic Echo Report Name: Jina Ferrara Age: 67 Gender: F : 1955 Exam Date: 11/27/2022 14:17 Exam Location: [facility] Ht (in): 63 Wt (lb): 175 Ordering Physician: Roberth Holloway MD Attending/Referring Phys: [employer]cre[employer] Siva Jack Procedure CPT: Indications: stroke Cardiac Hx: Technical Quality: Fair Contrast 1: Agitated Saline Total Dose (mL): 10 Contrast 2: Total Dose (mL): MEASUREMENTS (Male / Female) Normal Values 2D ECHO LV Diastolic Diameter PLAX 3.6 cm 4.2 - 5.9 / 3.9 - 5.3 cm LV Systolic Diameter PLAX 2.5 cm IVS Diastolic Thickness 0.9 cm 0.6 - 1.0 / 0.6 - 0.9 cm LVPW Diastolic Thickness 0.8 cm 0.6 - 1.0 / 0.6 - 0.9 cm LV Relative Wall Thickness 0.5 RV Internal Dim ED PLAX 2.7 cm LVOT Diameter 2.0 cm Aortic Root Diameter 2.8 cm LA Systolic Diameter LX 1.8 cm 3.0 - 4.0 / 2.7 - 3.8 cm LV Diastolic Volume MOD BP 28.7 cm??? 67 - 155 / 56 - 104 cm??? LV Systolic Volume MOD BP 14.6 cm??? 22 - 58 / 19 - 49 cm??? LV Ejection Fraction MOD BP 49.3 % >= 55 % LV Cardiac Index MOD BP 616.6 cm???/min???m??? LV Diastolic Volume MOD 4C 33.3 cm??? LV Systolic Volume MOD 4C 16.4 cm??? LV Ejection Fraction MOD 4C 50.9 % LV Cardiac Index MOD 4C 738.0 cm???/min???m??? LV Diastolic Length 4C 5.9 cm LV Systolic Length 4C 5.3 cm LV Diastolic Volume MOD 2C 23.6 cm??? LV Systolic Volume MOD 2C 12.2 cm??? LV Ejection Fraction MOD 2C 48.3 % LV Cardiac Index MOD 2C 495.8 cm???/min???m??? LV Diastolic Length 2C 6.3 cm LV Systolic Length 2C 5.0 cm LA Volume 21.8 cm??? 18 - 58 / 22 - 52 cm??? Ascending Aorta Diameter 2.8 cm DOPPLER AV Peak Velocity 113.2 cm/s AV Peak Gradient 5.1 mmHg MV Peak Velocity 98.4 cm/s MV Peak Gradient 3.9 mmHg MV Mean Velocity 50.9 cm/s MV Mean Gradient 1.2 mmHg MV Velocity Time Integral 20.9 cm Mitral E Point Velocity 64.3 cm/s Mitral A Point Velocity 92.6 cm/s Mitral E to A Ratio 0.7 MV Deceleration Time 238.7 ms MV E' Velocity 6.3 cm/s Mitral E to MV E' Ratio 10.2 TR Peak Velocity 103.4 cm/s TR Peak Gradient 4.3 mmHg Right Ventricular Systolic Press 9.3 mmHg FINDINGS Left Ventricle Normal LV size and wall thickness. Left ventricular ejection fraction is estimated at 55-60 %.normal left ventricular wall motion. Normal left ventricular diastolic filling pattern. Right Ventricle Normal right ventricular size. No evidence of shunting with bubble study Right Atrium Normal right atrial size. Left Atrium Normal left atrial size. Mitral Valve Structurally normal mitral valve. No mitral stenosis, regurgitation. Aortic Valve Trileaflet aortic valve. Mild sclerosis/calcification. Tricuspid Valve Tricuspid valve not well visualized. Trace TR. Pulmonic Valve Pulmonic valve not well visualized. No pulmonic regurgitation. Pericardium Normal pericardium. Aorta Ao root bruno= 2.8cm. CONCLUSIONS 1. Normal left ventricle size and systolic function 2. No evidence of shunting with bubble study Previewed by: Dr. James Collazo MD (Electronically Signed) Final Date: 27 November 2022 18:07
[2022-11-27] MEDS: clonazePAM 1 MG TAB PO SCH (19:56)
[2022-11-28] MEDS: PANTOPRAZOLE 40 MG TABLET PO SCH (06:20)
[2022-11-28] MEDS: CLOPIDOGREL 75 MG TAB PO SCH (08:59)
[2022-11-28] MEDS: ATORVASTATIN 40 MG TAB PO SCH (08:59)
[2022-11-28] MEDS ORDERED: ASPIRIN 81 MG PO SCH (09:00)
[2022-11-28] MEDS: HEPARIN SODIUM,PORCINE 5,000 UNIT/ML 1 ML VIAL SQ SCH (09:00)
[2022-11-28] MEDS: VENLAFAXINE HCL ER 150 MG CAP PO SCH (09:00)
[2022-11-28 09:07] VITALS: BP 135/81; PULSE 70; RESP 16; TEMP 97.5
--- NOTE | 2022-11-28 11:49 | P.DS ---
Providers Date of admission: 11/26/22 13:36 Expected date of discharge: 11/28/22 Attending physician: Ravindra Guevara MD Consults: 11/26/22 13:35 Consult Physician Routine Consulting Provider: Roberth Holloway Consult Reason/Comments: TIA Do you want consulting provider notified?: Yes Primary care physician: [facility] Course: 67-year-old woman with history of anxiety, depression who presented emergency department on 11/26/2022 because of episode of left lower extremity weakness. Patient stated that yesterday around 8:30 at a.m. she noticed that she is a feeling off and noticed that she is having left lower extremity weakness upon trying using the stairs. She felt she was swaying towards the left. Otherwise denies of any other neurological issues. Her episode lasted between 10-15 minutes and by time EMS arrived she stated that her episode resolved. Some of the workup during his hospital visit consisted of: Hemoglobin A1c is 6.2 Lipid panel is triglyceride 174, cholesterol is 167, LDL is 91 and HDL is 40. TSH is 3.62 CT of the head is reported as no acute intercranial process. Nonspecific white matter changes, likely secondary due to chronic small vessel ischemic disease. I personally reviewed the CT and there is no acute or subacute ischemia. CT of drug. The head and neck is reported as no evidence of dissection of cervical internal carotid artery or vertebral artery or any evidence of significant stenosis at the carotid bifurcation. No evidence of intracranial high-grade stenosis or intracranial aneurysm. Consultation was obtained from neurology and stroke workup was initiated MRI brain negative for acute intracranial process chronic small vessel changes noted Echocardiogram negative for PFO PHYSICAL EXAMINATION: GENERAL: The patient is alert and oriented x3, not in any acute distress. Well developed, well nourished. HEENT: Pupils are round and equally reacting to light. EOMI. No scleral icterus. No conjunctival pallor. Normocephalic, atraumatic. No pharyngeal erythema. No thyromegaly. CARDIOVASCULAR: S1 and S2 present. No murmurs, rubs, or gallops. PULMONARY: Chest is clear to auscultation, no wheezing or crackles. ABDOMEN: Soft, nontender, nondistended, normoactive bowel sounds. No palpable organomegaly. MUSCULOSKELETAL: No joint swelling or deformity. EXTREMITIES: No cyanosis, clubbing, or pedal edema. NEUROLOGICAL: Gross neurological examination did not reveal any focal deficits. SKIN: No rashes. Assessment transient ischemic attack (transient episode of left lower extremity weakness). Prediabetes and hemoglobin A1c is 6.2. History of anxiety History of depression Plan: Patient is on aspirin 81 mg daily. In addition I started the patient on Plavix 75 mg daily x 21 day total . Patient to be on dual antiplatelets for 21 days and after 21 days. Plavix DC but continue aspirin indefinitely She was not taking any antiplatelets prior to this. She started on Lipitor 40 mg daily Patient Condition at Discharge: Fair Plan - Discharge Summary New Discharge Prescriptions: New Aspirin 81 mg PO DAILY #30 tab Atorvastatin [Lipitor] 40 mg PO DAILY #30 tab Clopidogrel [Plavix] 75 mg PO DAILY 19 Days #19 tab Continue Omeprazole 40 mg PO DAILY #90 capsule. clonazePAM [KlonoPIN] 2 mg PO HS Venlafaxine HCl [Effexor XR] 150 mg PO DAILY Discharge Medication List Omeprazole 40 mg PO DAILY #90 capsule. 06/11/16 [Rx] clonazePAM [KlonoPIN] 2 mg PO HS 10/13/17 [History] Venlafaxine HCl [Effexor XR] 150 mg PO DAILY 11/26/22 [History] Aspirin 81 mg PO DAILY #30 tab 11/28/22 [Rx] Atorvastatin [Lipitor] 40 mg PO DAILY #30 tab 11/28/22 [Rx] Clopidogrel [Plavix] 75 mg PO DAILY 19 Days #19 tab 11/28/22 [Rx] Follow up Appointment(s)/Referral(s): None,Stated [REFERRING] - 1-2 days Discharge Disposition: HOME SELF-CARE
--- NOTE | 2022-11-28 12:28 | P.PN ---
Subjective Progress Note Date: 11/28/22 I am following-up seeing the patient and she feels she continues to be at baseline and denies of any new neurological issues. Objective - Vital Signs Vital signs: Vital Signs Temp 97.5 F L 11/28/22 07:00 Pulse 70 11/28/22 07:00 Resp 16 11/28/22 07:00 BP 135/81 11/28/22 07:00 Pulse Ox 98 11/28/22 07:00 FiO2 Intake & Output 11/27/22 11/28/22 11/28/22 18:59 06:59 18:59 Intake Total 118 Balance 118 Intake: Oral 118 Other: Voiding Method Toilet Toilet # Voids 1 2 - Exam GENERAL: The patient is lying in bed and is not in acute distress. NEUROLOGICAL: Higher mental function: The patient is awake, alert, oriented to self, place and time. Patient is following commands. No aphasia and no neglect. Cranial nerves: The pupils are round, equal and reactive to light and accommodation. Visual preston are full to confrontation throughout. Extraocular movement is intact no nystagmus is noted. Facial sensation is normal to touch throughout. The facial strength is normal throughout. Hearing is normal bilaterally to hand rub. Tongue is midline and moved [id number] without any difficulty. No dysarthria is noted. Shoulder shrug is normal bilaterally. Motor: Gait is normal. The strength is 5 over 5 throughout. Normal tone and bulk. Cerebellum: Normal finger to nose heel to chin bilaterally. Sensation: Sensation is normal to touch throughout. Reflexes (right/left): 2+ throughout. Plantars are downgoing bilaterally. Some of the workup during his hospital visit consisted of: Hemoglobin A1c is 6.2 Lipid panel is triglyceride 174, cholesterol is 167, LDL is 91 and HDL is 40. TSH is 3.62 CT of the head is reported as no acute intercranial process. Nonspecific white matter changes, likely secondary due to chronic small vessel ischemic disease. I personally reviewed the CT and there is no acute or subacute ischemia. CT of drug. The head and neck is reported as no evidence of dissection of cervi jenny internal carotid artery or vertebral artery or any evidence of significant stenosis at the carotid bifurcation. No evidence of intracranial high-grade stenosis or intracranial aneurysm. MRI the brain is reported as no evidence of intracranial mass, acute/subacute infarct or abnormal enhancement. White matter changes, some which are Orthovisc gone all to the ventricle correlate for demyelination. I personally reviewed the MRI and there is no acute or subacute ischemia. Regarding the white matter changes I feel unlikely demylinating disease. 2-D echo was reported as normal left ventricular size and systolic function. No evidence of shunting with bubble study. Normal left atrial size in the body the report. - Labs CBC & Chem 7: 11/27/22 06:04 11/27/22 06:04 Assessment and Plan Assessment: This is a 67-year-old woman well had episodes of a left lower extremity weakness around 8:30 AM on 11/26/2022 and episode lasted between 10-15 minutes. Likely transient ischemic attack (transient episode of left lower extremity weakness). MRI the brain is negative for acute or subacute ischemia. Prediabetes and hemoglobin A1c is 6.2. History of anxiety History of depression Plan: Continue dual antiplatelets of ASA 81 mg dailyand Plavix 75 mg daily. Patient to be on dual antiplatelets for 21 days and after 21 days to stop Plavix but continue aspirin indefinitely. She was not taking any antiplatelets prior to this. On Lipitor 40 mg daily for stroke prophylaxis Continue neuro checks On cardiac monitoring PT, OT and TELEVISION CABLE INSTALLER are consulted For DVT prophylaxis the patient is on subcu heparin 5000 units every 12 hours Recommend patient to follow-up with neurologist as outpatient within 1-2 weeks. The plan was discussed with the patient and her nurse. Otherwise, no additional neurological work-up. Please notify neurology team if any further concerns. Time with Patient: Less than 30
== END 2022-11-28 13:33 | disposition home or self-care (01) ==
LOC: EC 09:25 → 6NMEDSUR 13:36
PROVIDERS: ADMIT Internal Medicine; ATTEND Internal Medicine
DX: G45.8 Other transient cerebral ischemic attacks and related syndromes (principal); R73.03 Prediabetes; F41.9 Anxiety disorder, unspecified; F32.A Depression, unspecified; Z79.899 Other long term (current) drug therapy; M19.90 Unspecified osteoarthritis, unspecified site; Z85.828 Personal history of other malignant neoplasm of skin; Z98.84 Bariatric surgery status; Z98.891 History of uterine scar from previous surgery; Z90.49 Acquired absence of other specified parts of digestive tract; Z90.710 Acquired absence of both cervix and uterus; Z98.51 Tubal ligation status; Z80.1 Family history of malignant neoplasm of trachea, bronchus and lung; Z83.3 Family history of diabetes mellitus; Z82.3 Family history of stroke
CPT/HCPCS: 96372 ×3; 99285; 36415; 93005; 93306; 97161; 80061; 80053; 80048; 84443; 82550; 84484; 85025; 85027; 85610; 85730; 83036; 71046; 70496; 70450; 70498; 70553; G0378 ×3; J1644 ×3; Q9967; A9585

== ENCOUNTER → 2023-02-18 | Outpatient (CLI) | payer MEDICARE ==
--- NOTE | 2023-03-22 15:18 | P.CEMON ---
30 Day Event monitor note: Patient wore an event monitor for 30 days from 02/18/2023 through 03/16/2023. Findings: Patient's baseline heart rate was normal sinus rhythm. There were no signficant atrial fibrillation, atrial flutter, or ventricular tachycardia episodes. There were no significant pauses greater than 2 seconds. There were a total of 17 patient activated and automatically captured events corresponding with normal sinus rhythm and sinus tachycardia. There were 7 patient activated events which corresponded with sinus rhythm and 2 episodes with sinus tachycardia at 106 bpm. Conclusions: Relatively normal 30 day event monitor showing normal sinus rhythm and sinus tachycardia. No atrial fibrillation, atrial flutter or ventricular tachycardia. Patient activated events corresponding with normal sinus rhythm.
--- NOTE | 2023-03-25 13:16 | EM ---
30 Day Event monitor note: Patient wore an event monitor for 30 days from 02/18/2023 through 03/16/2023. Findings: Patient's baseline heart rate was normal sinus rhythm. There were no significant atrial fibrillation, atrial flutter, or ventricular tachycardia episodes. There were no significant pauses greater than 2 seconds. There were a total of 17 patient activated and automatically captured events corresponding with normal sinus rhythm and sinus tachycardia. There were 7 patient activated events which corresponded with sinus rhythm and 2 episodes with sinus tachycardia at 106 bpm. Conclusions: Relatively normal 30 day event monitor showing normal sinus rhythm and sinus tachycardia. No atrial fibrillation, atrial flutter or ventricular tachycardia. Patient activated events corresponding with normal sinus rhythm. [facility]
== END | disposition home or self-care (01) ==
LOC: RADECHMAIN 08:07
PROVIDERS: ATTEND Psychiatry & Neurology Neurology
DX: G45.9 Transient cerebral ischemic attack, unspecified (principal); R00.0 Tachycardia, unspecified; I49.9 Cardiac arrhythmia, unspecified
CPT/HCPCS: 93270

== ENCOUNTER → 2023-04-29 | Outpatient (CLI) | payer MEDICARE ==
--- NOTE | 2023-04-29 23:52 | BD ---
EXAMINATION TYPE: Axial Bone Density DATE OF EXAM: 04/29/2023 CLINICAL HISTORY: 67 years old Female. ICD-10 CODE: Z78.0 ASYMPTOMATIC MENOPAUSAL Height: 62 Weight: 177.4 FRAX RISK QUESTIONS: Alcohol (3 or more units per day): no Family History (Parent hip fracture): no Glucocorticoids (More than 3mos): no History of Fracture in Adulthood: no Secondary Osteoporosis: 1. Type 1 Diabetes: no 2. Hyperthyroidism: no 3. Menopause before 45: no 4. Malnutrition: no 5. Chronic liver disease: no Rheumatoid Arthritis: no Current Tobacco Use: no RISK FACTORS HISTORY OF: Hip Fracture (Right/Left): no Spine Fracture: no When: no History of Wrist Fracture: no Surgery to Spine/Hip(right/left)/Wrist (right/left): no Family History of Osteoporosis: no Active: no Diet low in dairy products/other sources of calcium: yes Postmenopausal woman: yes Take estrogen and/or progesterone medications: no Lost more than 2 inches in height since high school: no Frequent falls: no Poor Health: no Hyperparathyroidism: no Adrenal Insufficiency: no MEDICATIONS: Prednisone or other steroids: no Thyroid Medications: no Osteoporosis Medications: no Additional Medications: Depression meds, Reflux Meds, Additional History: EXAM MEASUREMENTS: Bone mineral densitometry was performed using the MeriTaleem System. Bone mineral density as measured about the Lumbar spine is: ----- L1-L4(G/cm2): 1.298 T Score Values are as follows: ----- L1: -0.1 ----- L2: 1.3 ----- L3: 0.7 ----- L4: 1.5 ----- L1-L4: 0.9 Z Score Values are as follows: ----- L1: 1.0 ----- L2: 2.4 ----- L3: 1.8 ----- L4: 2.7 ----- L1-L4: 2.0 Baseline Study Bone mineral density about the R hip (g/cm2): 0.888 Bone mineral density about the L hip (g/cm2): 0.863 T Score values are as follows: -----R Neck: -1.3 -----L Neck: -1.3 -----R Total: -1.0 -----L Total: -1.2 Z Score values are as follows: -----R Neck: 0.1 -----L Neck: 0.0 -----R Total: 0.1 -----L Total: -0.1 Baseline Study FRAX%s: The graph provided illustrates a 9.0 % chance for a major osteoporotic fx and a 1.1% chance f or the hips probability for fx in 10 years time. IMPRESSION: Osteopenia (T Score between -2.5 and -1). There is slightly increased risk of fracture and the patient may be considered for treatment. Re-Screen 2-5 years. NOTE: T-SCORE=SD OF THE YOUNG ADULT MEAN.
--- NOTE | 2023-04-30 18:22 | MM ---
Reason for Exam: Screening (asymptomatic). Last mammogram was performed 1 year(s) and 1 month(s) ago. Patient History: Menarche at age 10. First Full-Term at age 21. Left ovary removed at age 43. Right ovary removed at age 43. Hysterectomy at age 43. Postmenopausal. Patient used Estrogen for 1 year. Risk Values: Sidra 5 year model risk: 1.5%. NCI Lifetime model risk: 4.8%. Prior Study Comparison: 04/01/2020 Bilateral Screening Mammogram, [facility]. 04/09/2021 Bilateral Screening Mammogram, [facility]. 04/14/2022 Bilateral MG 3D screening mammo w/cad, [facility]. Tissue Density: There are scattered fibroglandular densities. Findings: Analyzed By CAD. Pattern appears stable. Multiple benign-appearing skin and punctate calcifications are present bilaterally. No suspicious groups of microcalcifications, spiculated or lobular masses, architectural distortion or other secondary signs of malignancy are mammographically apparent. Overall Assessment: Benign, BI-RAD 2 Management: Screening Mammogram of both breasts in 1 year. A negative mammogram report should not preclude additional follow up of suspicious palpable abnormalities. Patient should continue monthly self breast exam. A clinical breast exam by your physician is recommended on an annual basis and results should be correlated with mammographic findings. Electronically signed and approved by: Abad Emmanuel D.O. Radiologis
== END | disposition home or self-care (01) ==
LOC: RADMAMWWP 07:56
PROVIDERS: ATTEND Family Medicine
DX: Z12.31 Encounter for screening mammogram for malignant neoplasm of breast (principal); M85.89 Other specified disorders of bone density and structure, multiple sites; Z78.0 Asymptomatic menopausal state
CPT/HCPCS: 77063; 77067; 77080

== ENCOUNTER 2023-06-11 20:28 | Emergency (ER) | payer MEDICARE ==
[2023-06-11 22:26] LABS: Basophils % (A) 0 %; Eosinophils # (A) 0.1 k/uL (0-0.7); Eosinophils % (A) 1 %; HCT 45.7 % (34.0-46.0); HGB 14.9 gm/dL (11.4-16.0); Lymphocytes # (A) 1.6 k/uL (1.0-4.8); Lymphocytes % (A) 11 %; MCH 29.2 pg (25.0-35.0); MCHC 32.5 g/dL (31.0-37.0); MCV 89.6 fL (80.0-100.0); Mean Platelet Volume 8.6; Monocytes # (A) 0.6 k/uL (0-1.0); Monocytes % (A) 4 %; Neutrophils # (A) 12.4 k/uL (1.3-7.7); Neutrophils % (A) 84 %; Platelet Count 172 k/uL (150-450); RDW 13.7 % (11.5-15.5); WBC 14.9 k/uL (3.8-10.6)
[2023-06-11 22:31] LABS: Appearance,Urine Clear (Clear); Bilirubin,Urine Negative (Negative); Blood,Urine Negative (Negative); Color,Urine Yellow; Glucose,Urine (UA) 1+ (Negative); Leukocyte Esterase,Urine Negative (Negative); Nitrite,Urine Negative (Negative); PH, Urine 6.5 (5.0-8.0); Protein,Urine Negative (Negative)
[2023-06-11 22:45] LABS: ALT 55 U/L (4-34); AST 48 U/L (14-36); African American GFR (CKD) >90 (>60 ml/min/1.73 sqM); Albumin 4.5 g/dL (3.5-5.0); Alkaline Phosphatase 70 U/L (38-126); Amylase 47 U/L (30-110); Anion Gap 12 mmol/L; Blood Urea Nitrogen 17 mg/dL (7-17); Carbon Dioxide 22 mmol/L (22-30); Chloride 106 mmol/L (98-107); Glucose 133 mg/dL (74-99); Lipase 36 U/L (23-300); Non-African American GFR(CKD) 89 (>60 ml/min/1.73 sqM); Potassium 3.9 mmol/L (3.5-5.1); Sodium 140 mmol/L (137-145); Total Bilirubin 1.1 mg/dL (0.2-1.3); Total Protein 7.2 g/dL (6.3-8.2)
--- NOTE | 2023-06-11 23:52 | ED ---
Abdominal Pain HPI - General Chief Complaint: Abdominal Pain Stated Complaint: NV Time Seen by Provider: 06/11/23 20:58 Source: patient, EMS Mode of arrival: EMS - History of Present Illness Initial Comments: 64-year-old female with a past medical history significant for acid reflux and bariatric surgery. Patient states with history of bariatric surgery when she eats too quickly normally experiences acid reflux and belching. Reports tonight, she ate too quickly and started to experience the symptoms however patient states initially was unable to differentiate if she was having acid reflux or was having chest pain. States because of this that she started to become anxious and her hands became shaky prompting presentation to the ED for further evaluation. At this time she reports symptoms are completely resolved. Denies chest pain or shortness of breath. - Related Data Home Medications Medication Instructions Recorded Confirmed clonazePAM [KlonoPIN] 2 mg PO HS 10/13/17 11/26/22 Venlafaxine HCl [Effexor XR] 150 mg PO DAILY 11/26/22 11/26/22 Previous Rx's Medication Instructions Recorded Omeprazole 40 mg PO DAILY #90 capsule. 06/11/16 Aspirin 81 mg PO DAILY #30 tab 11/28/22 Atorvastatin [Lipitor] 40 mg PO DAILY #30 tab 11/28/22 Clopidogrel [Plavix] 75 mg PO DAILY 19 Days #19 tab 11/28/22 Allergies Allergy/AdvReac Type Severity Reaction Status Date / Time No Known Allergies Allergy Verified 06/11/23 20:38 Review of Systems ROS Statement: Those systems with pertinent positive or pertinent negative responses have been documented in the HPI. ROS Other: All systems not noted in ROS Statement are negative. 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/03/2012, panniculectomy 05/14/16; Colonoscopy; EGD Past Anesthesia/Blood Transfusion Reactions: No Reported Reaction Past Psychological History: Anxiety Past Alcohol Use History: None Reported Past Drug Use History: None Reported - Past Family History Brother(s) Additional Family Medical History / Comment(s): heart problems Mother Family Medical History: Cancer Additional Family Medical History / Comment(s): Mom of lung cancer Father Family Medical History: CVA/TIA, Diabetes Mellitus General Exam General appearance: alert, in no apparent distress Eye exam: Present: normal appearance Neck exam: Present: normal inspection Respiratory exam: Present: normal lung sounds bilaterally Cardiovascular Exam: Present: regular rate, normal rhythm GI/Abdominal exam: Present: soft (No tenderness to palpation. No rebound guarding or rigidity.) Neurological exam: Present: alert, oriented X3 Skin exam: Present: warm, dry Course Vital Signs 06/11/23 06/11/23 20:34 21:30 Temperature 97.6 F Pulse Rate 87 83 Respiratory 15 15 Rate Blood Pressure 150/91 131/63 O2 Sat by Pulse 100 97 Oximetry Medical Decision Making - Medical Decision Making Was pt. sent in by a medical professional or institution (, PA, SENIOR PAYROLL ADMINISTRATOR, urgent care, hospital, or assisted...) When possible be specific @ -No Did you speak to anyone other than the patient for history (EMS, parent, family, police, friend...)? What history was obtained from this source @ -No Did you review nursing and triage notes (agree or disagree)? Why? @ -I reviewed and agree with nursing and triage notes Were old charts reviewed (outside hosp., previous admission, EMS record, old EKG, old radiological studies, urgent care reports/EKG's, assisted records)? Report findings @ -No old charts were reviewed Differential Diagnosis (chest pain, altered mental status, abdominal pain women, abdominal pain men, vaginal bleeding, weakness, fever, dyspnea, syncope, headache, dizziness, GI bleed, back pain, seizure, CVA, palpatations, mental health, musculoskeletal)? @ -Differential Abdominal Pain Women: Appendicitis, Cholecystitis, diverticulosis, ischemic bowel, pancreatitis, hepatitis, UTI, gastroenteritis, AAA, incarcerated hernia, bowel obstruction, constipation, inflammatory bowel, hepatitis, peptic ulcer disease, splenic infarction, perforated viscus, vulvitis, ovarian torsion, PID, kidney stone, placenta abruption, this is not meant to be an all-inclusive list EKG interpreted by me (3pts min.). @ -None X-rays interpreted by me (1pt min.). @ -None done CT interpreted by me (1pt min.). @ -None done U/S interpreted by me (1pt. min.). @ -None done What testing was considered but not performed or refused? (CT, X-rays, U/S, labs)? Why? @ -Additional testing was considered however patient reports at this time symptoms completely resolved and were likely secondary to anxiety reports that she would like to go home. What meds were considered but not given or refused? Why? @ -None Did you discuss the management of the patient with other professionals (professionals i.e. , PA, SENIOR PAYROLL ADMINISTRATOR, lab, RT, psych nurse, medical social consultant, perinatal specialist, teacher, public records officer, case management social worker)? Give summary @ -No Was smoking cessation discussed for >3mins.? @ -No Was critical care preformed (if so, how long)? @ -No Were there social determinants of health that impacted care today? How? (Homelessness, low income, unemployed, alcoholism, drug addiction, transportation, low edu. Level, literacy, decrease access to med. care, longterm, rehab)? @ -No Was there de-escalation of care discussed even if they declined (Discuss DNR or withdrawal of care, Hospice)? DNR status @ -No What co-morbidities impacted this encounter? (DM, HTN, Smoking, COPD, CAD, Can cer, CVA, ARF, Chemo, Hep., AIDS, mental health diagnosis, sleep apnea, morbid obesity)? @ -None Was patient admitted / discharged? Hospital course, mention meds given and route, prescriptions, significant lab abnormalities, going to OR and other pertinent info. @ -Discharge 67-year-old female presenting to the ED with episode of acid reflux and anxiety. At this time, reports symptoms are completely resolved and patient would like to go home. Reports that she would not like to wait for laboratory testing and would not like any additional laboratory testing. At this time vital signs are stable and afebrile. Patient discharged home in stable condition. Discussed return precautions with patient and family who verbalized agreement. Undiagnosed new problem with uncertain prognosis? @ -No Drug Therapy requiring intensive monitoring for toxicity (Heparin, Nitro, Insulin, Cardizem)? @ -No Were any procedures done? @ -No Diagnosis/symptom? @ -Acid reflux, anxiety Acute, or Chronic, or Acute on Chronic? @ -Acute Uncomplicated (without systemic symptoms) or Complicated (systemic symptoms)? @ -Uncomplicated Side effects of treatment? @ -No Exacerbation, Progression, or Severe Exacerbation? @ -No Poses a threat to life or bodily function? How? (Chest pain, USA, CT, pneumonia, PE, COPD, DKA, ARF, appy, cholecystitis, CVA, Diverticulitis, Homicidal, Suicidal, threat to staff... and all critical care pts) @ -No - Lab Data Result diagrams: 06/11/23 21:56 06/11/23 21:56 Lab Results 06/11/23 06/11/23 06/11/23 Range/Units 21:56 21:56 21:56 WBC 14.9 H (3.8-10.6) k/uL RBC 5.10 (3.80-5.40) m/uL Hgb 14.9 (11.4-16.0) gm/dL Hct 45.7 (34.0-46.0) % MCV 89.6 (80.0-100.0) fL MCH 29.2 (25.0-35.0) pg MCHC 32.5 (31.0-37.0) g/dL RDW 13.7 (11.5-15.5) % Plt Count 172 (150-450) k/uL MPV 8.6 Neutrophils % 84 % Lymphocytes % 11 % Monocytes % 4 % Eosinophils % 1 % Basophils % 0 % Neutrophils # 12.4 H (1.3-7.7) k/uL Lymphocytes # 1.6 (1.0-4.8) k/uL Monocytes # 0.6 (0-1.0) k/uL Eosinophils # 0.1 (0-0.7) k/uL Basophils # 0.0 (0-0.2) k/uL Sodium (137-145) mmol/L Potassium (3.5-5.1) mmol/L Chloride (98-107) mmol/L Carbon Dioxide (22-30) mmol/L Anion Gap mmol/L BUN (7-17) mg/dL Creatinine (0.52-1.04) mg/dL Est GFR (CKD-EPI)AfAm (>60 ml/min/1.73 sqM) Est GFR (CKD-EPI)NonAf (>60 ml/min/1.73 sqM) Glucose (74-99) mg/dL Calcium (8.4-10.2) mg/dL Total Bilirubin (0.2-1.3) mg/dL AST (14-36) U/L ALT (4-34) U/L Alkaline Phosphatase (38-126) U/L Total Protein (6.3-8.2) g/dL Albumin (3.5-5.0) g/dL Amylase (30-110) U/L Lipase (23-300) U/L Urine Color Yellow Urine Appearance Clear (Clear) Urine pH 6.5 (5.0-8.0) Ur Specific [place] 1.020 (1.001-1.035) Urine Protein Negative (Negative) Urine Glucose (UA) 1+ H (Negative) Urine Ketones 3+ H (Negative) Urine Blood Negative (Negative) Urine Nitrite Negative (Negative) Urine Bilirubin Negative (Negative) Urine Urobilinogen 2.0 (<2.0) mg/dL Ur Leukocyte Esterase Negative (Negative) Influenza Type A (PCR) Not Detected (Not Detectd) Influenza Type B (PCR) Not Detected (Not Detectd) RSV (PCR) Not Detected (Not Detectd) SARS-CoV-2 (PCR) Not Detected (Not Detectd) 06/11/23 Range/Units 21:56 WBC (3.8-10.6) k/uL RBC (3.80-5.40) m/uL Hgb (11.4-16.0) gm/dL Hct (34.0-46.0) % MCV (80.0-100.0) fL MCH (25.0-35.0) pg MCHC (31.0-37.0) g/dL RDW (11.5-15.5) % Plt Count (150-450) k/uL MPV Neutrophils % % Lymphocytes % % Monocytes % % Eosinophils % % Basophils % % Neutrophils # (1.3-7.7) k/uL Lymphocytes # (1.0-4.8) k/uL Monocytes # (0-1.0) k/uL Eosinophils # (0-0.7) k/uL Basophils # (0-0.2) k/uL Sodium 140 (137-145) mmol/L Potassium 3.9 (3.5-5.1) mmol/L Chloride 106 (98-107) mmol/L Carbon Dioxide 22 (22-30) mmol/L Anion Gap 12 mmol/L BUN 17 (7-17) mg/dL Creatinine 0.70 (0.52-1.04) mg/dL Est GFR (CKD-EPI)AfAm >90 (>60 ml/min/1.73 sqM) Est GFR (CKD-EPI)NonAf 89 (>60 ml/min/1.73 sqM) Glucose 133 H (74-99) mg/dL Calcium 10.0 (8.4-10.2) mg/dL Total Bilirubin 1.1 (0.2-1.3) mg/dL AST 48 H (14-36) U/L ALT 55 H (4-34) U/L Alkaline Phosphatase 70 (38-126) U/L Total Protein 7.2 (6.3-8.2) g/dL Albumin 4.5 (3.5-5.0) g/dL Amylase 47 (30-110) U/L Lipase 36 (23-300) U/L Urine Color Urine Appearance (Clear) Urine pH (5.0-8.0) Ur Specific [place] (1.001-1.035) Urine Protein (Negative) Urine Glucose (UA) (Negative) Urine Ketones (Negative) Urine Blood (Negative) Urine Nitrite (Negative) Urine Bilirubin (Negative) Urine Urobilinogen (<2.0) mg/dL Ur Leukocyte Esterase (Negative) Influenza Type A (PCR) (Not Detectd) Influenza Type B (PCR) (Not Detectd) RSV (PCR) (Not Detectd) SARS-CoV-2 (PCR) (Not Detectd) Disposition Clinical Impression: Acid reflux, Anxiety Disposition: HOME SELF-CARE Condition: Good Instructions (If sedation given, give patient instructions): Anxiety (ED), GERD (Gastroesophageal Reflux Disease) (ED) Additional Instructions: Please return to the Emergency Department if symptoms worsen or any other concerns. Please follow-up with your primary care provider. Is patient prescribed a controlled substance at d/c from ED?: No Referrals: Drea Sherman MD [Primary Care Provider] - 1-2 days Time of Disposition: 23:57
[2023-06-11 23:54] LABS: Ketones,Urine 3+ (Negative)
[2023-06-12 01:00] VITALS: BP 109/77; PULSE 82; RESP 16; TEMP 97.9
== END 2023-06-12 00:22 | disposition home or self-care (01) ==
LOC: EC 20:28
DX: K21.9 Gastro-esophageal reflux disease without esophagitis (principal); F41.9 Anxiety disorder, unspecified; Z79.899 Other long term (current) drug therapy; Z20.822 Contact with and (suspected) exposure to COVID-19
CPT/HCPCS: 36415; 80053; 81003; 82150; 83690; 85025; 87636; 99284

== ENCOUNTER → 2024-05-09 | Outpatient (CLI) | payer MEDICARE ==
--- NOTE | 2024-05-09 08:57 | MM ---
Reason for Exam: Screening (asymptomatic). Last screening mammogram was performed 12 month(s) ago. Patient History: Menarche at age 10. First Full-Term at age 21. Left ovary removed at age 43. Right ovary removed at age 43. Hysterectomy at age 43. Postmenopausal. Patient used Estrogen for 1 year. Risk Values: Sidra 5 year model risk: 1.5%. NCI Lifetime model risk: 4.5%. Prior Study Comparison: 04/09/2021 Bilateral Screening Mammogram, [facility]. 04/14/2022 Bilateral MG 3D screening mammo w/cad, [facility]. 04/29/2023 Bilateral MG 3D screening mammo w/cad, [facility]. Tissue Density: There are scattered areas of fibroglandular density. Findings: Analyzed By CAD. There are benign-appearing scattered and loosely grouped round calcifications bilaterally redemonstrated. There is no suspicious new group of microcalcifications or new suspicious mass in either breast. Overall Assessment: Benign, BI-RAD 2 Management: Screening Mammogram of both breasts in 1 year. . Patient should continue monthly self-breast exams. A clinical breast exam by your physician is recommended on an annual basis. This exam should not preclude additional follow-up of suspicious palpable abnormalities. Note on Sidra scores and lifetime risk: 1. A Sidra score greater than 3% is considered moderate risk. If this is the case, consider specialist referral to assess eligibility for a risk reducing agent. 2. If overall lifetime risk for the development of breast cancer is 20% or higher, the patient may qualify for future screening with alternating mammogram and breast MRI. [facility], , 05/09/2024 8:54 AM. Electronically signed and approved by: Mu Kulkarni M.D.
== END | disposition home or self-care (01) ==
LOC: RADMAMWWP 07:41
PROVIDERS: ATTEND Family Medicine
DX: Z12.31 Encounter for screening mammogram for malignant neoplasm of breast (principal); Z90.722 Acquired absence of ovaries, bilateral; Z78.0 Asymptomatic menopausal state; R92.323 Mammographic fibroglandular density, bilateral breasts
CPT/HCPCS: 77063; 77067